=== PATIENT | female | born 1985 | race Caucasian/White ===

== ENCOUNTER → 2017-02-28 | Outpatient (CLI) | payer OTHER ==
--- NOTE | 2017-02-28 15:12 | KCIC ---
Examination: Obstetric ultrasound greater than 14 weeks HISTORY: History of uterine size discrepancy COMPARISON: None available FINDINGS: Single living intrauterine identified with heart rate of 160 bpm. movement is seen. Cardiac activity seen. 4 chamber heart seen. 3 vessel cord, cord insertion, fluid in the bladder, stomach, kidneys, spine, brain: seen. position is cephalic. Amniotic fluid measures 7.7 cm which is low normal. The biparietal diameter measures 3.37 cm corresponding to 16 weeks and 3 days +/- 8 days. Head circumference measures 12.34 cm corresponding to 16 weeks and 1 day +/- 8 days. Abdominal circumference measures 9.91 cm corresponding to 16 weeks and 0 days +/- 12 days. Femur length 2.05 cm corresponding to 16 weeks and 1 day +/- 10 days. Cephalic index 76.1. Head circumference to abdominal circumference ratio 1.25. Femur length biparietal diameter 60.8. Femur length to head circumference 16.6. Femur length abdominal circumference 20.7. LMP 11/08/2016. Clinical age 16 weeks and 0 days with expected date of delivery 08/15/2017. Ultrasound age 16 weeks and 1 day with expected date of delivery by ultrasound 08/14/2017. Estimated weight 144 g +/- 21 g. The maternal cervix is not well seen. Placenta is posterior. There is questionable anterior uterine contraction seen IMPRESSION: 1. Single living intrauterine with heart rate of 160 bpm. 2. Amniotic fluid index is 7.7 which is low-normal. Close interval follow-up examination can be considered. 3. Clinical age 16 weeks and 0 days with expected date of delivery 08/15/2017.Ultrasound age 16 weeks and 1 day with expected date of delivery by ultrasound 08/14/2017. Electronically signed by: Maurilio Live MD (02/28/2017 3:08 PM)
== END | disposition home or self-care (01) ==
LOC: KCIC US 13:00
PROVIDERS: ATTEND Obstetrics & Gynecology
DX: O26.842 Uterine size-date discrepancy, second trimester (principal); Z3A.16 16 weeks gestation of pregnancy
CPT/HCPCS: 76805; 76817

== ENCOUNTER → 2017-03-27 | Outpatient (CLI) | payer OTHER ==
--- NOTE | 2017-03-27 13:12 | RAD ---
Indication. Discrepancy in size and dates. Note is made of a previous examination 02/28/2017. There is a single, viable, IUP. heart rate 152 was documented. The placenta is predominantly posterior and low-lying but does not appear to cover the cervix. The amount of amniotic fluid appears normal. The biparietal diameter of 4.5 cm, head circumference of 17.1 cm, abdominal circumference of 14.5 cm and femoral length of 3.2 cm are compatible with a gestational age of approximately 19 weeks 5 days. By sonographic analysis the expected date of confinement is 10/17/2016 which is in general agreement with previous exam. The estimated weight is approximately 300 g. There was a 4 chambered heart. The visualized bladder, stomach, kidneys spine and brain appeared unremarkable. The upper cervix appeared open and dilated. The cervical length measured approximately 2.8 cm. The findings, regarding the cervix, were communicated to the ordering physician's office. The patient was to return to the office. IMPRESSION: Single viable intrauterine fetus of approximately 19 weeks 5 days gestation. Low lying placenta. The upper cervix appears open and somewhat dilated. Cervical length measured approximately 2.8 cm..
== END | disposition home or self-care (01) ==
LOC: US 11:55
PROVIDERS: ATTEND Obstetrics & Gynecology
DX: O09.92 Supervision of high risk pregnancy, unspecified, second trimester (principal); O26.842 Uterine size-date discrepancy, second trimester; Z3A.19 19 weeks gestation of pregnancy
CPT/HCPCS: 76805

== ENCOUNTER → 2017-04-11 | Outpatient (CLI) | payer OTHER ==
--- NOTE | 2017-04-11 09:45 | RAD ---
Obstetrical ultrasound, 04/11/2017: History: Size and date discrepancy, oligohydramnios There is a single intrauterine fetus in a variable presentation. The biparietal diameter measures 5.1 cm compatible with a gestational age of 21-22 weeks. The femur length measurement is 4.6 cm suggesting a gestational age of closer to 25 weeks. This discrepancy may be constitutional as the father is reportedly quite tall. The average gestational age based on all the measurements is 22 weeks and 5 days yielding a sonographic EDC of 08/10/2017. This correlates well with the EDC of 08/14/2017 established on the original ultrasound exam of 02/28/2017. Normal activity and heart motion are seen. The heart rate is 165 bpm. A normal amount of amniotic fluid is present. The placenta is located posteriorly with no evidence of a placenta previa. The cervical length is 5-6 cm. No extension of fluid into the cervical canal is currently seen. IMPRESSION: Single viable intrauterine fetus of 22-23 weeks gestational age which has demonstrated normal interval growth since prior studies.
== END | disposition home or self-care (01) ==
LOC: US 07:37
PROVIDERS: ATTEND Obstetrics & Gynecology
DX: O26.842 Uterine size-date discrepancy, second trimester (principal); O41.02X0 Oligohydramnios, second trimester, not applicable or unspecified; Z3A.23 23 weeks gestation of pregnancy
CPT/HCPCS: 76805

== ENCOUNTER 2017-05-14 12:24 | Observation (INO) | payer OTHER ==
[2017-05-14 13:20] LABS: BILIRUBIN,URINE NEGATIVE (NEG); GLUCOSE,URINE NEGATIVE (NEG); NITRITE,URINE NEGATIVE (NEG); PROTEIN,URINE NEGATIVE (NEG-TRACE); UROBILINOGEN,URINE 0.2 mg/dL (0.2 mg/dL)
[2017-05-14 13:54] LABS: BACTERIA,URINE MODERATE /HPF (0-FEW); RBC,URINE 0 /HPF (0-2); SQUAMOUS EPITHELIAL CELL,UR MOD /LPF
[2017-05-14] MEDS ORDERED: IV RINGERS,LACTATED 500ML 500 ML IV ONE (14:15)
--- NOTE | 2017-05-14 15:39 | RAD ---
Indication assess cervical length and placental placement. A limited obstetrical ultrasound examination was performed. Note is made of a previous exam 04/11/2017. There is a single viable intrauterine fetus. heart rate of 147 was documented. The biparietal diameter of 6.7 cm, head circumference of 25 cm and femoral length of 5.2 cm and abdominal circumference of 22.3 cm are compatible with a gestational age of approximately 27 weeks. Estimated weight is approximately 1025 g. The amount of amniotic fluid appears normal calculated index is 13.5. The placenta was positioned predominantly posterior and fundal. The cervical length was unremarkable at 4.4 cm. IMPRESSION: Single viable intrauterine fetus of approximately 27 weeks. Cervical length 4.4 cm. Normal amniotic fluid index. Placenta positioned predominantly posterior and fundal
== END 2017-05-14 16:30 | disposition home or self-care (01) ==
LOC: 3 SO LND 12:24
PROVIDERS: ADMIT Obstetrics & Gynecology; ATTEND Obstetrics & Gynecology
DX: O62.9 Abnormality of forces of labor, unspecified (principal); Z3A.27 27 weeks gestation of pregnancy
CPT/HCPCS: 76815; 81001; G0378; G0379

== ENCOUNTER 2017-08-12 06:05 | Inpatient (IN) | payer OTHER ==
[~2017-08-12] VITALS: Ht 162.6 cm; Wt 94.8 kg
[2017-08-12] VITALS (7 sets, daily range): BP systolic 98–122; BP diastolic 58–82
[2017-08-12] MEDS ORDERED: NALOXONE 0.4 MG/ML VIAL. IV PRN (06:30)
[2017-08-12] MEDS ORDERED: ONDANSETRON PF 4 MG/2 ML VIAL. IV PRN ×2 (06:30→09:00)
[2017-08-12] MEDS ORDERED: OXYTOCIN 30 UNIT/500 ML PREMIX 500 ML IV PRN ×2 (06:30→09:00)
[2017-08-12] MEDS ORDERED: IV RINGERS,LACTATED 1000ML 1,000 ML IV SCH ×3 (06:30)
[2017-08-12] MEDS ORDERED: ATROPINE 0.5 MG/5 ML DISP.SYRIN. IV PRN (06:30)
[2017-08-12] MEDS ORDERED: 0.9 % SODIUM CHLORIDE 10 ML DISP.SYRIN. IV PRN ×2 (06:30→09:00)
[2017-08-12 07:05] LABS: BILIRUBIN,URINE NEGATIVE (NEG); GLUCOSE,URINE NEGATIVE (NEG); NITRITE,URINE NEGATIVE (NEG); PH,URINE 7.5; PROTEIN,URINE NEGATIVE (NEG-TRACE)
[2017-08-12 07:26] LABS: BACTERIA,URINE FEW /HPF (0-FEW); SQUAMOUS EPITHELIAL CELL,UR MANY /LPF
[2017-08-12] MEDS ORDERED: MORPHINE PF 5 MG/10 ML VIAL. ONE (07:28)
[2017-08-12] MEDS ORDERED: fentaNYL PF VIAL 100 MCG/2 ML VIAL ONE (07:29)
[2017-08-12] MEDS ORDERED: FAMOTIDINE 20 MG/2 ML VIAL ONE (07:34)
[2017-08-12] MEDS ORDERED: ONDANSETRON PF 4 MG/2 ML VIAL. ONE (07:34)
[2017-08-12] MEDS ORDERED: METOCLOPRAMIDE HCL 10 MG/2 ML VIAL. ONE (07:34)
[2017-08-12 07:43] LABS: BASO % 0 % (0-3); EOS % 1 % (0-3); HEMATOCRIT 40.3 % (36.0-47.0); HEMOGLOBIN 13.6 g/dL (12.0-15.5); LYMPH % 15 % (24-48); MEAN CORPUSCULAR HEMOGLOBIN 29 pg (25-35); MEAN CORPUSCULAR HGB CONC 34 g/dL (31-37); MEAN CORPUSCULAR VOLUME 87 fL (79-100); MONO % 6 % (0-9); NEUT % 79 % (31-73); PLATELET COUNT 219 x10^3/uL (140-400); RED BLOOD COUNT 4.65 x10^6/uL (3.50-5.40); RED CELL DISTRIBUTION WIDTH 14.5 % (11.5-14.5); WHITE BLOOD COUNT 13.6 x10^3/uL (4.0-11.0)
--- NOTE | 2017-08-12 07:48 | PDOC1 ---
OB - History Hx of Present Care: Good Care Ultrasounds: Normal mid trimester US Obstetrical Complications: None Medical Complications: None Past Family/Social History * Past Medical, Surgical, Family and Obstetric Histories reviewed from chart. Rubella: Immune RPR/VDRL: Negative GBS Status: Negative HBsAG: Negative OB - Chief Complaint & HPI Date of Admission: Date of Admission: Aug 12, 2017 at 06:05 Chief Complaint/History : 2 Para: 1 EGA: 39 Reason for admission: section Indication for : desires repeat Admission Nurse Assessment Rev: Yes Problems: OB - Admission Exam Physical Exam HEENT: Normal Heart: Regular Rate Lungs: Clear Abdomen: Gravid, Non tender, Soft Extremities: Edema Reflexes: Normal Cervical Dilatation: None Effacement: 0% Station: Ballotable Membranes: Intact Heart Rate: Normal Accelerations: Accelerations Present Decelerations: No decelerations Contractions on Admission: >10 Minutes Apart Intensity: Mild Text A: 39 wks IUP Previous c/s P: Admit for repeat c/s. SAUL LA Jr, MD Aug 12, 2017 07:48
[2017-08-12] MEDS ORDERED: PNV1TABL25 PO (07:49)
[2017-08-12] MEDS ORDERED: RANI150T6 PO (07:50)
[2017-08-12] MEDS: CITRIC ACID/SODIUM CITRATE 30 ML SOLUTION. PO PRN ×2 (07:51→07:52)
[2017-08-12] MEDS: IV RINGERS,LACTATED 1000ML 1,000 ML IV PRN ×2 (07:52→22:10)
[2017-08-12] MEDS ORDERED: PHENYLEPHRINE in 0.9% NACL PF 1 MG/10 ML DISP.SYRIN. IV ONE (07:54)
[2017-08-12] MEDS ORDERED: OXYTOCIN 10 UNIT/ML VIAL. ONE ×3 (07:57→08:44)
--- NOTE | 2017-08-12 08:57 | PDOC4 ---
OB Operative Note Date: Aug 12, 2017 PRE OP DIAGNOSIS: Previoujs C- section POST OP DIAGNOSIS: Previous C- section OPERATION PERFORMED: R [facility] Surgeon Dr. Robert Villarreal Anesthesia: Regional (Spinal) Blood Loss 600 ml Specimen infant and placenta OB Findings: Position (Vertex), Sex (Female), (8/9), Weight (3610 Gram) Complications none Additional Remarks pt. stable SAUL LA Jr, MD Aug 12, 2017 08:57
[2017-08-12] MEDS ORDERED: MAG HYDROX/ALUMINUM HYD/SIMETH 30 ML ORAL.SUSP PO PRN (09:00)
[2017-08-12] MEDS ORDERED: diphenhydrAMINE ORAL ELIXIR 12.5 MG/5 ML ML PO PRN (09:00)
[2017-08-12] MEDS ORDERED: SIMETHICONE 80 MG TAB.CHEW PO PRN (09:00)
[2017-08-12] MEDS ORDERED: ZOLPIDEM 5 MG TABLET. PO PRN (09:00)
--- NOTE | 2017-08-12 09:45 | OP ---
DATE OF SURGERY: PREOPERATIVE DIAGNOSES: 1. A 39 weeks intrauterine . 2. Previous . POSTOPERATIVE DIAGNOSES: 1. A 39 weeks intrauterine . 2. Previous . PROCEDURE: Repeat low transverse section. SURGEON: Saul Jones M.D. MENTALLY RETARDED TEACHER: Cherelle. ANESTHESIA: Spinal. ESTIMATED BLOOD LOSS: 600 mL. COMPLICATIONS: None. FINDINGS: Viable female , Apgars 8 and 9, weight 3610 grams. Three-vessel cord placenta delivered manually intact. SUMMARY: A 32-year-old 2, para 1 at 39 weeks presented for repeat . She was counseled on the risks, benefits and expectations and voiced a clear understanding to proceed. DESCRIPTION OF PROCEDURE: The patient was taken to surgery suite and placed in dorsal supine position. She was prepped with ChloraPrep and draped in a sterile fashion. After adequate anesthesia, a Pfannenstiel skin incision was made with a scalpel down to and through the fascia. Fascia was extended laterally using curved Stanton scissors. The superior edge of the fascia was grasped with two Cathie clamps and dissected free of the abdominal rectus muscle using blunt dissection along with Bovie cautery. The same process took place inferiorly. The abdominal rectus muscles were then dissected bluntly at the midline. Peritoneum was grasped with 2 hemostats and entered sharply with Metzenbaum scissors. This incision was extended superiorly as well as inferiorly. There were adhesions to the lower uterine segment as well as upper uterine segment that were bluntly dissected along with sharp dissection with Metzenbaum scissors. The Daniel ring retractor was placed. A low transverse hysterotomy incision was made with scalpel down to the amniotic sac. Hysterotomy incision was extended laterally and superiorly digitally. Amniotomy was performed with Allis clamp, which elicited a moderate amount of clear amniotic fluid. With the aid of fundal pressure, the 's head was delivered in a smooth atraumatic manner. With additional fundal pressure, the anterior shoulder was delivered followed by posterior shoulder and rest of the female was delivered. Infant was suctioned with bulb syringe orally and nasally, umbilical cord was clamped twice and cut. The viable female infant was handed to awaiting nursing staff. Umbilical cord blood was then obtained. Three-vessel cord placenta was delivered manually intact. The uterus was exteriorized, cleared of clot and debris with a moist lap. Hysterotomy incision was reapproximated using a 1-0 Vicryl suture in running locked fashion. In the right apex of the hysterotomy incision, a [id number] suture was placed for better hemostasis. The uterus palpated firm. Fallopian tubes and ovaries appeared normal bilaterally. The pericolic gutters were cleared of clot and debris with a moist lap. Interceed was placed over the hysterotomy incision in an inverted T fashion. The Daniel ring retractor was removed. The peritoneum was reapproximated using 1-0 Vicryl suture in running fashion. Fascia was reapproximated using 0 Vicryl suture in a running fashion. Skin was reapproximated using 4-0 Vicryl suture in a subcuticular manner. The patient tolerated the procedure well and was taken to the recovery room in stable condition. Sponge and needle count correct x 3. SAUL JONES MD DR: DILEEP/amari JOB#: [id number] / [id number]
[2017-08-12] MEDS: KETOROLAC 30 MG/ML INJ. IV PRN ×2 (13:11→18:43)
[2017-08-12] MEDS: oxyCODONE/APAP 5/325 1 TAB TABLET PO PRN ×2 (13:12→18:43)
[2017-08-12] MEDS: FERROUS SULFATE 325 MG TABLET. PO SCH (13:28)
[2017-08-12] MEDS: DOCUSATE SODIUM 100 MG CAPSULE. PO PRN (22:07)
[2017-08-12] MEDS: IBUPROFEN 800 MG TABLET. PO PRN (22:07)
[2017-08-13] MEDS: oxyCODONE/APAP 5/325 1 TAB TABLET PO PRN (02:15)
[2017-08-13 05:35] LABS: BASO % 0 % (0-3); EOS % 1 % (0-3); HEMATOCRIT 34.8 % (36.0-47.0); HEMOGLOBIN 11.5 g/dL (12.0-15.5); LYMPH # 1.8 x10^3/uL (1.0-4.8); LYMPH % 15 % (24-48); MEAN CORPUSCULAR HEMOGLOBIN 29 pg (25-35); MEAN CORPUSCULAR HGB CONC 33 g/dL (31-37); MEAN CORPUSCULAR VOLUME 88 fL (79-100); MONO % 6 % (0-9); NEUT % 79 % (31-73); PLATELET COUNT 164 x10^3/uL (140-400); RED BLOOD COUNT 3.96 x10^6/uL (3.50-5.40); RED CELL DISTRIBUTION WIDTH 14.3 % (11.5-14.5); WHITE BLOOD COUNT 12.5 x10^3/uL (4.0-11.0)
[2017-08-13 06:14] VITALS: BP 107/72
[2017-08-13] MEDS: FERROUS SULFATE 325 MG TABLET. PO SCH (08:00)
--- NOTE | 2017-08-13 08:11 | PDOC ---
OB Progress Note Date of Service 08/13/17 Time of Evaluation 0810 Notes Pt. feeling well. Pain controlled. Breast feeding. Lochia minimal. No complaints. Lab Laboratory Tests Test 08/12/17 06:30 08/12/17 06:50 08/13/17 05:00 Urine Collection Type Unknown Urine Color Yellow Urine Clarity Clear Urine pH 7.5 Urine Specific [place] 1.015 Urine Protein Negative mg/dL (NEG-TRACE) Urine Glucose (UA) Negative mg/dL (NEG) Urine Ketones (Stick) Negative mg/dL (NEG) Urine Blood Small (NEG) Urine Nitrite Negative (NEG) Urine Bilirubin Negative (NEG) Urine Urobilinogen Dipstick 1.0 mg/dL (0.2 mg/dL) Urine Leukocyte Esterase Large (NEG) Urine RBC 3-5 /HPF (0-2) Urine WBC 11-20 /HPF (0-4) Urine Squamous Epithelial Cells Many /LPF Urine Bacteria Few /HPF (0-FEW) White Blood Count 13.6 x10^3/uL (4.0-11.0) 12.5 x10^3/uL (4.0-11.0) Red Blood Count 4.65 x10^6/uL (3.50-5.40) 3.96 x10^6/uL (3.50-5.40) Hemoglobin 13.6 g/dL (12.0-15.5) 11.5 g/dL (12.0-15.5) Hematocrit 40.3 % (36.0-47.0) 34.8 % (36.0-47.0) Mean Corpuscular Volume 87 fL (79-100) 88 fL (79-100) Mean Corpuscular Hemoglobin 29 pg (25-35) 29 pg (25-35) Mean Corpuscular Hemoglobin Concent 34 g/dL (31-37) 33 g/dL (31-37) Red Cell Distribution Width 14.5 % (11.5-14.5) 14.3 % (11.5-14.5) Platelet Count 219 x10^3/uL (140-400) 164 x10^3/uL (140-400) Neutrophils (%) (Auto) 79 % (31-73) 79 % (31-73) Lymphocytes (%) (Auto) 15 % (24-48) 15 % (24-48) Monocytes (%) (Auto) 6 % (0-9) 6 % (0-9) Eosinophils (%) (Auto) 1 % (0-3) 1 % (0-3) Basophils (%) (Auto) 0 % (0-3) 0 % (0-3) Neutrophils # (Auto) 10.7 x10^3uL (1.8-7.7) 9.8 x10^3uL (1.8-7.7) Lymphocytes # (Auto) 2.0 x10^3/uL (1.0-4.8) 1.8 x10^3/uL (1.0-4.8) Monocytes # (Auto) 0.8 x10^3/uL (0.0-1.1) 0.7 x10^3/uL (0.0-1.1) Eosinophils # (Auto) 0.1 x10^3/uL (0.0-0.7) 0.1 x10^3/uL (0.0-0.7) Basophils # (Auto) 0.0 x10^3/uL (0.0-0.2) 0.0 x10^3/uL (0.0-0.2) Rapid Plasma Reagin Non reactive (Non Reactive) Laboratory Tests Test 08/13/17 05:00 White Blood Count 12.5 x10^3/uL (4.0-11.0) Red Blood Count 3.96 x10^6/uL (3.50-5.40) Hemoglobin 11.5 g/dL (12.0-15.5) Hematocrit 34.8 % (36.0-47.0) Mean Corpuscular Volume 88 fL (79-100) Mean Corpuscular Hemoglobin 29 pg (25-35) Mean Corpuscular Hemoglobin Concent 33 g/dL (31-37) Red Cell Distribution Width 14.3 % (11.5-14.5) Platelet Count 164 x10^3/uL (140-400) Neutrophils (%) (Auto) 79 % (31-73) Lymphocytes (%) (Auto) 15 % (24-48) Monocytes (%) (Auto) 6 % (0-9) Eosinophils (%) (Auto) 1 % (0-3) Basophils (%) (Auto) 0 % (0-3) Neutrophils # (Auto) 9.8 x10^3uL (1.8-7.7) Lymphocytes # (Auto) 1.8 x10^3/uL (1.0-4.8) Monocytes # (Auto) 0.7 x10^3/uL (0.0-1.1) Eosinophils # (Auto) 0.1 x10^3/uL (0.0-0.7) Basophils # (Auto) 0.0 x10^3/uL (0.0-0.2) Medications Current Medications Atropine Sulfate 0.5 mg PRN 1X PRN IV SEE COMMENTS; Start 08/12/17 at 06:30; Stop 08/12/17 at 13:30; Status DC Naloxone HCl (Narcan) 0.04 mg PRN Q2MIN PRN IV SEE COMMENTS; Start 08/12/17 at 06:30; Stop 08/12/17 at 13:34; Status DC Ringer's Solution 1,000 ml @ 125 mls/hr Q8H IV Last administered on 08/12/17 07:41; Start 08/12/17 at 06:30; Stop 08/12/17 at 06:31; Status DC Ringer's Solution 1,000 ml @ 1,000 mls/hr Q1H IV Last administered on 07:51; Start 08/12/17 at 06:30; Stop 08/12/17 at 07:29; Status DC Ringer's Solution 1,000 ml @ 125 mls/hr Q8H IV ; Start 08/12/17 at 06:30; Stop 08/12/17 at 07:13; Status DC Cefazolin Sodium/ Dextrose 50 ml @ 100 mls/hr 1X ONCE IV Last administered on 08/12/17 07:54; Start 08/12/17 at 06:45; Stop 08/12/17 at 13:34; Status DC Sodium Chloride (Normal Saline Flush) 3 ml QSHIFT PRN IV AFTER MEDS AND BLOOD DRAWS; Start 08/12/17 at 06:30; Stop 08/12/17 at 13:30; Status DC Ondansetron HCl (Zofran) 4 mg PRN Q4HRS PRN IV NAUSEA/VOMITING; Start 08/12/17 at 06:30; Stop 08/12/17 at 13:30; Status DC Citric Acid/ Sodium Citrate (Bicitra) 30 ml 1X PRN PRN PO DYSPEPSIA Last administered on 08/12/17 07:52; Start 08/12/17 at 06:30; Stop 08/12/17 at 13:30 ; Status DC Oxytocin/Sodium Chloride 500 ml @ 0 mls/hr CONT PRN PRN IV Post delivery bleeding; Start 08/12/17 at 06:30; Stop 08/12/17 at 13:30; Status DC Ringer's Solution 1,000 ml @ 125 mls/hr Q8H PRN IV PER PROTOCOL Last administered on 08/12/17 22:10; Start 08/12/17 at 07:12 Morphine Sulfate (Morphine Preservative Free) 5 mg STK-MED ONCE .ROUTE ; Start 08/12/17 at 07:28; Stop 08/12/17 at 13:34; Status DC Fentanyl Citrate (Fentanyl 2ml Vial) 100 mcg STK-MED ONCE .ROUTE ; Start at 07:29; Stop 08/12/17 at 13:34; Status DC Ondansetron HCl (Zofran) 4 mg STK-MED ONCE .ROUTE ; Start 08/12/17 at 07:34; Stop 08/12/17 at 13:31; Status DC Metoclopramide HCl (Reglan Vial) 10 mg STK-MED ONCE .ROUTE ; Start 08/12/17 at 07:34; Stop 08/12/17 at 13:34; Status DC Famotidine (Pepcid Vial) 20 mg STK-MED ONCE .ROUTE ; Start 08/12/17 at 07:34; Stop 08/12/17 at 13:34; Status DC Phenylephrine HCl 1 mg STK-MED ONCE IV ; Start 08/12/17 at 07:54; Stop 08/12/17 at 13:34; Status DC Ephedrine Sulfate (Akovaz) 50 mg STK-MED ONCE .ROUTE ; Start 08/12/17 at 07:54; Stop 08/12/17 at 13:34; Status DC Oxytocin (Pitocin) 10 unit STK-MED ONCE .ROUTE ; Start 08/12/17 at 07:57; Stop 08/12/17 at 13:34; Status DC Diphtheria/ Tetanus/Acell Pertussis (Boostrix) 0.5 ml ONCE ONCE VAX IM Last administered on 08/12/17 13:00; Start 08/13/17 at 12:00; Stop 08/13/17 at 12:00 ; Status DC Oxytocin (Pitocin) 10 unit STK-MED ONCE .ROUTE ; Start 08/12/17 at 08:44; Stop 08/12/17 at 13:34; Status DC Oxytocin (Pitocin) 10 unit STK-MED ONCE .ROUTE ; Start 08/12/17 at 08:44; Stop 08/12/17 at 13:34; Status DC Sodium Chloride (Normal Saline Flush) 3 ml QSHIFT PRN IV AFTER MEDS AND BLOOD DRAWS; Start 08/12/17 at 09:00; Stop 08/12/17 at 13:32; Status DC Oxytocin/Sodium Chloride 500 ml @ 125 mls/hr CONT PRN IV EXCESSIVE POST- BLEEDING; Start 08/12/17 at 09:00; Stop 08/12/17 at 13:31; Status DC Ibuprofen (Motrin) 800 mg PRN Q8HRS PRN PO INFLAMMATION Last administered on 22:07; Start 08/12/17 at 09:00 Ondansetron HCl (Zofran) 4 mg PRN Q6HRS PRN IV NAUSEA/VOMITING; Start 08/12/17 at 09:00 Docusate Sodium (Colace) 100 mg PRN BID PRN PO CONSTIPATION Last administered on 08/12/17 22:07; Start 08/12/17 at 09:00 Al Hydroxide/Mg Hydroxide (Mylanta Plus Xs) 30 ml PRN Q4HRS PRN PO HEARTBURN / GAS; Start 08/12/17 at 09:00 Simethicone (Gas-X) 80 mg PRN AFTMEALHC PRN PO GAS / BLOATING; Start 08/12/17 at 09:00 Diphenhydramine HCl (Benadryl Oral Elixir) 12.5 mg PRN Q6HRS PRN PO ITCHING; Start 08/12/17 at 09:00 Ferrous Sulfate (Feosol) 325 mg BIDWMEALS PO ; Start 08/12/17 at 17:00 Zolpidem Tartrate (Ambien) 5 mg PRN QHS PRN PO INSOMNIA, MAY REPEAT X1; Start 08/12/17 at 09:00 Oxycodone/ Acetaminophen (Percocet 5/325) 2 tab PRN Q4HRS PRN PO MODERATE PAIN , SEVERE PAIN Last administered on 08/13/17 02:15; Start 08/12/17 at 09:00 Ketorolac Tromethamine (Toradol) 30 mg PRN Q6HRS PRN IV PAIN Last administered on 08/12/17 18:43; Start 08/12/17 at 09:00; Stop 08/17/17 at 08:59 Active Scripts Active Reported Zantac (Ranitidine Hcl) 150 Mg Tablet 1 Tab PO BID PRN Tablet (Pnv Cmb#95/Ferrous Fumarate/Fa) 1 Each Tablet 1 Tab PO DAILY Exam Abd: soft, non tender, fundus firm Bandage in place and dry. Assessment POD#1 s/p repeat c/s Plan of Care: Continue current Tx, Mgmt SAUL LA Jr, MD Aug 13, 2017 08:11
[2017-08-13 10:30] VITALS: BP 112/78
[2017-08-13] MEDS: IBUPROFEN 800 MG TABLET. PO PRN ×2 (10:36→16:23)
[2017-08-13] MEDS: DOCUSATE SODIUM 100 MG CAPSULE. PO PRN ×2 (10:36→18:02)
[2017-08-13] MEDS ORDERED: DIPHTH,PERTUSS(ACELL),TET TOX 0.5 ML DISP.SYRIN. VAX IM ONE (12:00)
[2017-08-13] MEDS ORDERED: MAGNESIUM HYDROXIDE 2,400 MG/30 ML ORAL.SUSP. PO PRN (18:00)
[2017-08-13 20:30] VITALS: BP 131/71
[2017-08-14] MEDS: oxyCODONE/APAP 5/325 1 TAB TABLET PO PRN (00:27)
[2017-08-14] MEDS: IBUPROFEN 800 MG TABLET. PO PRN ×2 (00:27→08:21)
[2017-08-14 06:00] VITALS: BP 114/82
[2017-08-14 08:15] VITALS: BP 126/76
[2017-08-14] MEDS: DOCUSATE SODIUM 100 MG CAPSULE. PO PRN (08:21)
--- NOTE | 2017-08-14 08:33 | PDOC ---
OB Progress Note Date of Service 08/14/17 Time of Evaluation 0830 Notes Pt. feeling well. No complaints. Lab Laboratory Tests Test 08/13/17 05:00 White Blood Count 12.5 x10^3/uL (4.0-11.0) Red Blood Count 3.96 x10^6/uL (3.50-5.40) Hemoglobin 11.5 g/dL (12.0-15.5) Hematocrit 34.8 % (36.0-47.0) Mean Corpuscular Volume 88 fL (79-100) Mean Corpuscular Hemoglobin 29 pg (25-35) Mean Corpuscular Hemoglobin Concent 33 g/dL (31-37) Red Cell Distribution Width 14.3 % (11.5-14.5) Platelet Count 164 x10^3/uL (140-400) Neutrophils (%) (Auto) 79 % (31-73) Lymphocytes (%) (Auto) 15 % (24-48) Monocytes (%) (Auto) 6 % (0-9) Eosinophils (%) (Auto) 1 % (0-3) Basophils (%) (Auto) 0 % (0-3) Neutrophils # (Auto) 9.8 x10^3uL (1.8-7.7) Lymphocytes # (Auto) 1.8 x10^3/uL (1.0-4.8) Monocytes # (Auto) 0.7 x10^3/uL (0.0-1.1) Eosinophils # (Auto) 0.1 x10^3/uL (0.0-0.7) Basophils # (Auto) 0.0 x10^3/uL (0.0-0.2) Medications Current Medications Atropine Sulfate 0.5 mg PRN 1X PRN IV SEE COMMENTS; Start 08/12/17 at 06:30; Stop 08/12/17 at 13:30; Status DC Naloxone HCl (Narcan) 0.04 mg PRN Q2MIN PRN IV SEE COMMENTS; Start 08/12/17 at 06:30; Stop 08/12/17 at 13:34; Status DC Ringer's Solution 1,000 ml @ 125 mls/hr Q8H IV Last administered on 08/12/17t 07:41; Start 08/12/17 at 06:30; Stop 08/12/17 at 06:31; Status DC Ringer's Solution 1,000 ml @ 1,000 mls/hr Q1H IV Last administered on 07:51; Start 08/12/17 at 06:30; Stop 08/12/17 at 07:29; Status DC Ringer's Solution 1,000 ml @ 125 mls/hr Q8H IV ; Start 08/12/17 at 06:30; Stop 08/12/17 at 07:13; Status DC Cefazolin Sodium/ Dextrose 50 ml @ 100 mls/hr 1X ONCE IV Last administered on 08/12/17 07:54; Start 08/12/17 at 06:45; Stop 08/12/17 at 13:34; Status DC Sodium Chloride (Normal Saline Flush) 3 ml QSHIFT PRN IV AFTER MEDS AND BLOOD DRAWS; Start 08/12/17 at 06:30; Stop 08/12/17 at 13:30; Status DC Ondansetron HCl (Zofran) 4 mg PRN Q4HRS PRN IV NAUSEA/VOMITING; Start 08/12/17 at 06:30; Stop 08/12/17 at 13:30; Status DC Citric Acid/ Sodium Citrate (Bicitra) 30 ml 1X PRN PRN PO DYSPEPSIA Last administered on 08/12/17 07:52; Start 08/12/17 at 06:30; Stop 08/12/17 at 13:30 ; Status DC Oxytocin/Sodium Chloride 500 ml @ 0 mls/hr CONT PRN PRN IV Post delivery bleeding; Start 08/12/17 at 06:30; Stop 08/12/17 at 13:30; Status DC Ringer's Solution 1,000 ml @ 125 mls/hr Q8H PRN IV PER PROTOCOL Last administered on 08/12/17 22:10; Start 08/12/17 at 07:12; Stop 08/14/17 at 07:26 ; Status DC Morphine Sulfate (Morphine Preservative Free) 5 mg STK-MED ONCE .ROUTE ; Start 08/12/17 at 07:28; Stop 08/12/17 at 13:34; Status DC Fentanyl Citrate (Fentanyl 2ml Vial) 100 mcg STK-MED ONCE .ROUTE ; Start at 07:29; Stop 08/12/17 at 13:34; Status DC Ondansetron HCl (Zofran) 4 mg STK-MED ONCE .ROUTE ; Start 08/12/17 at 07:34; Stop 08/12/17 at 13:31; Status DC Metoclopramide HCl (Reglan Vial) 10 mg STK-MED ONCE .ROUTE ; Start 08/12/17 at 07:34; Stop 08/12/17 at 13:34; Status DC Famotidine (Pepcid Vial) 20 mg STK-MED ONCE .ROUTE ; Start 08/12/17 at 07:34; Stop 08/12/17 at 13:34; Status DC Phenylephrine HCl 1 mg STK-MED ONCE IV ; Start 08/12/17 at 07:54; Stop 08/12/17 at 13:34; Status DC Ephedrine Sulfate (Akovaz) 50 mg STK-MED ONCE .ROUTE ; Start 08/12/17 at 07:54; Stop 08/12/17 at 13:34; Status DC Oxytocin (Pitocin) 10 unit STK-MED ONCE .ROUTE ; Start 08/12/17 at 07:57; Stop 08/12/17 at 13:34; Status DC Diphtheria/ Tetanus/Acell Pertussis (Boostrix) 0.5 ml ONCE ONCE VAX IM Last administered on 08/12/17 13:00; Start 08/13/17 at 12:00; Stop 08/13/17 at 12:00 ; Status DC Oxytocin (Pitocin) 10 unit STK-MED ONCE .ROUTE ; Start 08/12/17 at 08:44; Stop 08/12/17 at 13:34; Status DC Oxytocin (Pitocin) 10 unit STK-MED ONCE .ROUTE ; Start 08/12/17 at 08:44; Stop 08/12/17 at 13:34; Status DC Sodium Chloride (Normal Saline Flush) 3 ml QSHIFT PRN IV AFTER MEDS AND BLOOD DRAWS; Start 08/12/17 at 09:00; Stop 08/12/17 at 13:32; Status DC Oxytocin/Sodium Chloride 500 ml @ 125 mls/hr CONT PRN IV EXCESSIVE POST- BLEEDING; Start 08/12/17 at 09:00; Stop 08/12/17 at 13:31; Status DC Ibuprofen (Motrin) 800 mg PRN Q8HRS PRN PO INFLAMMATION Last administered on 08:21; Start 08/12/17 at 09:00 Ondansetron HCl (Zofran) 4 mg PRN Q6HRS PRN IV NAUSEA/VOMITING; Start 08/12/17 at 09:00; Stop 08/13/17 at 10:40; Status DC Docusate Sodium (Colace) 100 mg PRN BID PRN PO CONSTIPATION Last administered on 08/14/17 08:21; Start 08/12/17 at 09:00 Al Hydroxide/Mg Hydroxide (Mylanta Plus Xs) 30 ml PRN Q4HRS PRN PO HEARTBURN / GAS; Start 08/12/17 at 09:00 Simethicone (Gas-X) 80 mg PRN AFTMEALHC PRN PO GAS / BLOATING; Start 08/12/17 at 09:00 Diphenhydramine HCl (Benadryl Oral Elixir) 12.5 mg PRN Q6HRS PRN PO ITCHING; Start 08/12/17 at 09:00 Ferrous Sulfate (Feosol) 325 mg BIDWMEALS PO ; Start 08/12/17 at 17:00; Stop at 10:40; Status DC Zolpidem Tartrate (Ambien) 5 mg PRN QHS PRN PO INSOMNIA, MAY REPEAT X1; Start 08/12/17 at 09:00 Oxycodone/ Acetaminophen (Percocet 5/325) 2 tab PRN Q4HRS PRN PO MODERATE PAIN , SEVERE PAIN Last administered on 08/14/17 00:27; Start 08/12/17 at 09:00 Ketorolac Tromethamine (Toradol) 30 mg PRN Q6HRS PRN IV PAIN Last administered on 08/12/17 18:43; Start 08/12/17 at 09:00; Stop 08/13/17 at 10:40; Status DC Magnesium Hydroxide (Milk Of Magnesia) 2,400 mg PRN DAILY PRN PO CONSTIPATION Last administered on 08/13/17 18:02; Start 08/13/17 at 18:00 Active Scripts Active Reported Zantac (Ranitidine Hcl) 150 Mg Tablet 1 Tab PO BID PRN Tablet (Pnv Cmb#95/Ferrous Fumarate/Fa) 1 Each Tablet 1 Tab PO DAILY Exam Abd: soft, non tender, fundus firm Incision site: clean, dry and intact Assessment POD#2 s/p repeat c/s Plan of Care: See new orders (D/c home.) SAUL LA Jr, MD Aug 14, 2017 08:33
--- NOTE | 2017-08-14 08:34 | DISCH ---
DISCHARGE INSTRUCTIONS Condition on Discharge Condition on Discharge: Stable Activity After Discharge Activity Instructions for Disc: Activity as tolerated Lifting Instructions after Dis: No heavy lifting Driving Instructions after Dis: No driving for 2 weeks Diet after Discharge Diet Texture: Regular Contacting the DRMax after DC Call your doctor for: Concerns you may have Follow-Up Follow up with: Dr. Jones in 2 weeks. SAUL JONES Jr, MD Aug 14, 2017 08:34
[2017-08-14] MEDS ORDERED: IBUP-1060 PO (08:36)
[2017-08-14] MEDS ORDERED: OXYC-323 PO (08:36)
[2017-08-14] MEDS ORDERED: DOCU-109 PO (08:36)
[2017-08-14 12:35] VITALS: BP 129/74
[2017-08-14 12:42] VITALS: BP 129/74
== END 2017-08-14 12:45 | disposition home or self-care (01) | DRG 766 ==
LOC: 3 SO LND 06:05 → 3 NORTH 11:02
PROVIDERS: ADMIT Obstetrics & Gynecology; ATTEND Obstetrics & Gynecology
PROC: 10D00Z1 Extraction of Products of Conception, Low, Open Approach (ICD-10-PCS; principal; 2017-08-12)
DX: O34.211 Maternal care for low transverse scar from previous cesarean delivery (principal); Z37.0 Single live birth; Z3A.39 39 weeks gestation of pregnancy
CPT/HCPCS: 36415; 81001; 85025; 86592; 86593; 86850; 86900; 86901; 87086; 90715; 92585; J0690; J1885; J2270; J2370; J2405; J2590; J2765; J3010; J7120; S0028

== ENCOUNTER 2020-02-07 09:44 | Emergency (ER) | payer MEDICAID, OTHER ==
[~2020-02-07] VITALS: Ht 162.6 cm; Wt 90.9 kg
[~2020-02-07 09:44] MED LIST: DOCU-109 PO; IBUP-1060 PO; OXYC1TAB15 PO; PNV1TABL25 PO; RANI-376 PO
[2020-02-07] MEDS ORDERED: IV NORMAL SALINE 1000ML BAG 1,000 ML IV ONE ×2 (10:15→11:45)
[2020-02-07 10:39] LABS: CALCIUM 8.6 mg/dL (8.5-10.1); GFR 63.9; POTASSIUM 3.6 mmol/L (3.5-5.1)
[2020-02-07 10:45] LABS: ALBUMIN 4.2 g/dL (3.4-5.0); ALBUMIN/GLOBULIN RATIO 1.3 (1.0-1.7); TOTAL BILIRUBIN 0.8 mg/dL (0.2-1.0); TOTAL PROTEIN 7.5 g/dL (6.4-8.2)
[2020-02-07 10:51] LABS: BASO % 0 % (0-3); EOS # 0.1 x10^3/uL (0.0-0.7); EOS % 1 % (0-3); HEMATOCRIT 45.6 % (36.0-47.0); HEMOGLOBIN 15.4 g/dL (12.0-15.5); LYMPH # 1.4 x10^3/uL (1.0-4.8); LYMPH % 13 % (24-48); MEAN CORPUSCULAR HEMOGLOBIN 30 pg (25-35); MEAN CORPUSCULAR HGB CONC 34 g/dL (31-37); MEAN CORPUSCULAR VOLUME 88 fL (79-100); MONO # 0.5 x10^3/uL (0.0-1.1); MONO % 5 % (0-9); NEUT # 9.3 x10^3/uL (1.8-7.7); NEUT % 82 % (31-73); PLATELET COUNT 220 x10^3/uL (140-400); RED BLOOD COUNT 5.21 x10^6/uL (3.50-5.40); RED CELL DISTRIBUTION WIDTH 13.4 % (11.5-14.5); WHITE BLOOD COUNT 11.4 x10^3/uL (4.0-11.0)
[2020-02-07 11:51] VITALS: BP 106/58
--- NOTE | 2020-02-07 12:46 | PHYS DOC ---
Past Medical History Past Medical History: Kidney Stone Past Surgical History: , Other Additional Past Surgical Histo: nephrolithotomy Smoking Status: Current Every Day Smoker Alcohol Use: None General Adult EDM: Chief Complaint: ANXIETY/PANIC ATTACK HPI: HPI: Patient is a 34 year old female presents to the ED with a chief complaint of palpitations and shortness of breath. Patient states that she was at work this morning when she suddenly had the symptoms. Patient states that she had a previous episode like this 3 days ago which lasted about an hour and then resolved. Patient states that she is never had symptoms like this before. Patient is not sure if this is a anxiety attack. Patient decided to drink caffeinated beverages this morning she came to work at 5 AM. Patient denies chest pain, fever, chills, nausea or vomiting. Review of Systems: Review of Systems: Constitutional: Denies fever or chills. [] Eyes: Denies change in visual acuity. [] HENT: Denies nasal congestion or sore throat. [] Respiratory: Complains of shortness of breath Cardiovascular: Complains of palpitations GI: Denies abdominal pain, nausea, vomiting : Denies dysuria. [] Musculoskeletal: Denies back pain or joint pain. [] Neurologic: Denies headache, focal weakness or sensory changes. [] Heart Score: Risk Factors: Risk Factors: DM, Current or recent (<one month) smoker, HTN, HLP, family history of CAD, obesity. Risk Scores: Score 0 - 3: 2.5% MACE over next 6 weeks - Discharge Home Score 4 - 6: 20.3% MACE over next 6 weeks - Admit for Clinical Observation Score 7 - 10: 72.7% MACE over next 6 weeks - Early Invasive Strategies Current Medications: Current Medications Medications (Trade) Dose Ordered Sig/Nena Start Time Stop Time Status Last Admin Dose Admin Sodium Chloride 1,000 ml @ 1,000 mls/hr 1X ONCE 02/07/20 11:45 02/07/20 12:44 DC 02/07/20 11:53 1,000 MLS/HR Allergies: Allergies: Allergies Coded Allergies Type Severity Reaction Last Updated Verified morphine Adverse Reaction Intermediate Vomiting 08/12/17 Yes Physical Exam: PE: Constitutional: Well developed, well nourished, no acute distress, non-toxic appearance. [] HENT: Normocephalic, atraumatic Eyes: EOMI Neck: Normal range of motion, Supple Cardiovascular: Tachycardia Lungs & Thorax: Bilateral breath sounds clear to auscultation [] Abdomen: Bowel sounds normal, soft, no tenderness Extremities: No tenderness, ROM intact Neurologic: Alert and oriented X 3 Current Patient Data: Labs: Laboratory Tests Test 02/07/20 10:20 White Blood Count 11.4 x10^3/uL (4.0-11.0) H Red Blood Count 5.21 x10^6/uL (3.50-5.40) Hemoglobin 15.4 g/dL (12.0-15.5) Hematocrit 45.6 % (36.0-47.0) Mean Corpuscular Volume 88 fL (79-100) Mean Corpuscular Hemoglobin 30 pg (25-35) Mean Corpuscular Hemoglobin Concent 34 g/dL (31-37) Red Cell Distribution Width 13.4 % (11.5-14.5) Platelet Count 220 x10^3/uL (140-400) Neutrophils (%) (Auto) 82 % (31-73) H Lymphocytes (%) (Auto) 13 % (24-48) L Monocytes (%) (Auto) 5 % (0-9) Eosinophils (%) (Auto) 1 % (0-3) Basophils (%) (Auto) 0 % (0-3) Neutrophils # (Auto) 9.3 x10^3/uL (1.8-7.7) H Lymphocytes # (Auto) 1.4 x10^3/uL (1.0-4.8) Monocytes # (Auto) 0.5 x10^3/uL (0.0-1.1) Eosinophils # (Auto) 0.1 x10^3/uL (0.0-0.7) Basophils # (Auto) 0.0 x10^3/uL (0.0-0.2) Sodium Level 141 mmol/L (136-145) Potassium Level 3.6 mmol/L (3.5-5.1) Chloride Level 105 mmol/L (98-107) Carbon Dioxide Level 27 mmol/L (21-32) Anion Gap 9 (6-14) Blood Urea Nitrogen 14 mg/dL (7-20) Creatinine 1.0 mg/dL (0.6-1.0) Estimated GFR (Cockcroft-Gault) 63.9 BUN/Creatinine Ratio 14 (6-20) Glucose Level 118 mg/dL (70-99) H Calcium Level 8.6 mg/dL (8.5-10.1) Magnesium Level 2.0 mg/dL (1.8-2.4) Total Bilirubin 0.8 mg/dL (0.2-1.0) Aspartate Amino Transferase (AST) 14 U/L (15-37) L Alanine Aminotransferase (ALT) 22 U/L (14-59) Alkaline Phosphatase 80 U/L (46-116) Troponin I Quantitative < 0.017 ng/mL (0.000-0.055) Total Protein 7.5 g/dL (6.4-8.2) Albumin 4.2 g/dL (3.4-5.0) Albumin/Globulin Ratio 1.3 (1.0-1.7) Thyroid Stimulating Hormone (TSH) 0.870 uIU/mL (0.358-3.74) Laboratory Tests 02/07/20 10:20 Laboratory Tests 02/07/20 10:20 Vital Signs: Vital Signs Date Time Temp Pulse Resp B/P (MAP) Pulse Ox O2 Delivery O2 Flow Rate FiO2 02/07/20 09:57 98.2 122 18 142/73 (96) 99 Room Air 98.2 EKG: EKG: [EKG interpretation: 9: 58 AM on 02/07/2020 HR: 118 Sinus tachycardia Regular intervals Normal axis Nonspecific ST changes ] Radiology/Procedures: Radiology/Procedures: [] Course & Med Decision Making: Course & Med Decision Making Pertinent Labs reviewed. (See chart for details) Patient's labs are within normal limits. Patient has received 1 L IV fluids in the ER. Patient's heart rate is now 110. I have ordered a second liter of IV fluids Patient's oxygen saturation is 100% on room air. Blood pressure is within normal limits. Patient is an active smoker but has no other risk factors for PE. After 2 L of IV fluids, patient has heart rate of 101. Patient states that she is feeling so much better and would like to be discharged home. Patient to follow-up with PCP as an outpatient. Discussed results and plan of care with patient. Patient is instructed to follow up with PCP in one to 2 days. Appropriate discharge instructions given to patient to return to the ED or to seek immediate medical evaluation. Patient is instructed to return to the ED if symptoms worsen or if any concerns. Dragon Disclaimer: Dragon Disclaimer: This electronic medical record was generated, in whole or in part, using a voice recognition dictation system. Departure Departure Impression: Primary Impression: Dehydration Additional Impression: Tachycardia Disposition: 01 HOME, SELF-CARE Condition: IMPROVED Referrals: UNKNOWN PCP NAME (PCP) Patient Instructions: Dehydration, Adult, Nonspecific Tachycardia Additional Instructions: Please return to the ED if symptoms worsen or if any concerns. Please follow-up with PCP in 1 to 2 days. ROMAN NOYOLA DO February 07, 2020 12:46
--- NOTE | 2020-02-08 07:23 | EKG ---
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
== END 2020-02-07 13:06 | disposition home or self-care (01) ==
LOC: ER 09:44
DX: E86.0 Dehydration (principal); R00.0 Tachycardia, unspecified; F17.200 Nicotine dependence, unspecified, uncomplicated; Z88.5 Allergy status to narcotic agent; Z87.442 Personal history of urinary calculi
CPT/HCPCS: 36415; 80053; 83735; 84443; 84484; 85025; 93005; 96360; 96361; 99285; J7030

== ENCOUNTER 2020-02-13 05:56 | Emergency (ER) | payer SELFPAY ==
[~2020-02-13] VITALS: Ht 167.6 cm; Wt 89.5 kg
[2020-02-13] MEDS ORDERED: CONTRAST GIVEN. MC PRN (06:45)
--- NOTE | 2020-02-13 06:54 | PHYS DOC ---
Past Medical History Past Medical History: GERD, Kidney Stone Past Surgical History: , Other Additional Past Surgical Histo: nephrolithotomy Smoking Status: Current Every Day Smoker Alcohol Use: None General Adult EDM: Chief Complaint: CHEST PAIN HPI: HPI: Patient is a 34 year old female who presented to ER today for evaluation of chest pain, heaviness in nature, trouble breathing for about a week. Patient is a smoker, denies any recent travel or operation. Patient denied having fever, not been exposed to anybody who tested positive for COVID-19. Patient was seen here on February 06 for the same problem, at that time her heart rate was really fast, she was found to be dehydrated, she was given IV fluids. She was discharged home, continues to feel like somebody sitting on her chest. Patient denies any diabetic history, no history hypertension, no history of blood clot disorder. Review of Systems: Review of Systems: Constitutional: Denies fever or chills. [] Eyes: Denies change in visual acuity. [] HENT: Denies nasal congestion or sore throat. [] Respiratory: Denies cough, positive for trouble breathing. Cardiovascular: Positive for chest pain, no edema or swelling. GI: Denies abdominal pain, nausea, vomiting, bloody stools or diarrhea. [] : Denies dysuria. [] Musculoskeletal: Denies back pain or joint pain. [] Integument: Denies rash. [] Neurologic: Denies headache, focal weakness or sensory changes. [] Endocrine: Denies polyuria or polydipsia. [] Lymphatic: Denies swollen glands. [] Psychiatric: Denies depression or anxiety. [] Heart Score: HEART Score for Chest Pain: HEART Score for Chest Pain Response (Comments) Value History Slighlty/Non-Suspicious 0 ECG Normal 0 Age < 45 0 Risk Factors 1 or 2 Risk Factors 1 Troponin < Normal Limit 0 Total 1 Risk Factors: Risk Factors: DM, Current or recent (<one month) smoker, HTN, HLP, family history of CAD, obesity. Risk Scores: Score 0 - 3: 2.5% MACE over next 6 weeks - Discharge Home Score 4 - 6: 20.3% MACE over next 6 weeks - Admit for Clinical Observation Score 7 - 10: 72.7% MACE over next 6 weeks - Early Invasive Strategies Current Medications: Current Medications Medications (Trade) Dose Ordered Sig/Nena Start Time Stop Time Status Last Admin Dose Admin Info (CONTRAST GIVEN -- Rx MONITORING) 1 each PRN DAILY PRN 02/13/20 06:45 02/15/20 06:44 Iohexol (Omnipaque 350 Mg/ml) 100 ml 1X ONCE 02/13/20 07:00 02/13/20 07:01 Sodium Chloride 1,000 ml @ 1,000 mls/hr 1X ONCE 02/13/20 07:00 02/13/20 07:59 02/13/20 06:46 1,000 MLS/HR Allergies: Allergies: Allergies Coded Allergies Type Severity Reaction Last Updated Verified morphine Adverse Reaction Intermediate Vomiting 08/12/17 Yes Physical Exam: PE: Constitutional: Well developed, well nourished, no acute distress, non-toxic appearance. [] HENT: Normocephalic, atraumatic, bilateral external ears normal, oropharynx moist, no oral exudates, nose normal. [] Eyes: PERRLA, EOMI, conjunctiva normal, no discharge. [] Neck: Normal range of motion, no tenderness, supple, no stridor. [] Cardiovascular:Heart rate regular rhythm, no murmur [] Lungs & Thorax: Bilateral breath sounds clear to auscultation [] Abdomen: Bowel sounds normal, soft, no tenderness, no masses, no pulsatile mass es. [] Skin: Warm, dry, no erythema, no rash. [] Back: No tenderness, no CVA tenderness. [] Extremities: No tenderness, no cyanosis, no clubbing, ROM intact, no edema. [] Neurologic: Alert and oriented X 3, normal motor function, normal sensory function, no focal deficits noted. [] Psychologic: Affect normal, judgement normal, mood normal. [] Current Patient Data: Labs: Laboratory Tests Test 02/13/20 06:33 POC Urine HCG, Qualitative Hcg negative (Negative) Vital Signs: Vital Signs Date Time Temp Pulse Resp B/P (MAP) Pulse Ox O2 Delivery O2 Flow Rate FiO2 02/13/20 06:24 97.9 107 18 142/83 (102) 100 Room Air 97.9 EKG: EKG: EKG was done at 0604, heart rate 107 bpm, sinus tachycardia, no ST segment elevation. Normal QT interval. [] Radiology/Procedures: Radiology/Procedures: [] [address] [place] [address] IMAGING REPORT Signed PATIENT: CONNOR LITTLE ACCOUNT: [id number] : 1985 LOCATION: ER AGE: 34 SEX: F EXAM STATUS: REG ER ORD. PHYSICIAN: JUANI BERNAL DO REASON: epigastric pain, RUQ ,RIGHT LOWER CHEST PAIN PROCEDURE: ABDOMEN LTD ABDOMEN LTD: 02/13/2020 7:28 AM Indication: 34 years old Female. Epigastric pain, right upper quadrant pain. Right lower chest pain. Comparison: None. TECHNIQUE: Sonographic evaluation of the right upper quadrant was performed utilizing grayscale and color Doppler imaging. FINDINGS: Liver: Homogenous normal echotexture.. There is hepatopedal flow within the portal venous system. Right hepatic lobe measures 17.9 cm. Biliary system: CBD measures 3 mm. There is no intrahepatic or extrahepatic biliary dilatation. Gallbladder: Cholelithiasis with wall echo shadow, limiting evaluation. Sonographic Rosen sign: Negative Pancreas: Visualized head and uncinate process are unremarkable. Body and tail are not visualized. Right kidney: 12.2 x 5.9 x 5.4 cm. No hydronephrosis. Normal echotexture without focal mass or renal calculus. Free fluid:None. IMPRESSION: Cholelithiasis with wall echo shadow which limits evaluation. No definite findings to suggest acute cholecystitis. Electronically signed by: Justina Hernandez MD (02/13/2020 8:11 AM) [facility] DICTATED and SIGNED BY: JUSTINA HERNANDEZ MD DATE: 02/13/20 [address] [place] [address] IMAGING REPORT Signed PATIENT: CONNOR LITTLE ACCOUNT: [id number] : 1985 LOCATION: ER AGE: 34 SEX: F EXAM STATUS: REG ER ORD. PHYSICIAN: JUANI BERNAL DO REASON: chest pain, soa, feeling dizzy, smoker. PROCEDURE: CT ANGIOGRAPHY CHEST CT angiography chest with contrast PQRS statement: CT scans at this facility use dose reduction including either automated exposure control, iterative reconstructions, and /or weight based radiation dosing via mA and kV modification when appropriate to reduce radiation dose to as low as reasonably achievable. HISTORY: Chest pain, shortness of breath, dizziness. TECHNIQUE: CT imaging the chest with 3-D MIP reconstructions of the pulmonary arteries with 100 mL Omnipaque 350 intravenous contrast. FINDINGS: Heart size is normal. Esophagus and thoracic aorta are normal. No adenopathy in the chest. No pulmonary artery emboli. Large gallstones completely fill the gallbladder versus calcification of the wall from porcelain gallbladder. This extends outside the [id number]. No pneumothorax, pulmonary opacities or pleural effusions. 4 mm solid nodule or lymph node minor fissure image 65. Bones are unremarkable. IMPRESSION: 1. No acute process in the chest. No pulmonary artery emboli. 2. 4 mm solid nodule versus fissural lymph node at the minor fissure. Per Fleischner guidelines if the patient has risk factors for malignancy optional CT follow-up in 12 months would be advised, otherwise no follow-up is necessary. 3. Large ovoid gallstones completely filling the lumen of the gallbladder versus calcification or gallbladder wall from porcelain gallbladder. Electronically signed by: Milana Mcgill MD (02/13/2020 7:22 AM) [id number] DICTATED and SIGNED BY: MILANA MCGILL MD DATE: 02/13/20721 Course & Med Decision Making: Course & Med Decision Making Pertinent Labs and Imaging studies reviewed. (See chart for details) [] Dragon Disclaimer: Dragmira Disclaimer: This electronic medical record was generated, in whole or in part, using a voice recognition dictation system. Departure Departure Impression: Primary Impression: Biliary colic Disposition: HOME, SELF-CARE Condition: IMPROVED Referrals: UNKNOWN PCP NAME (PCP) VICTOR M GAMEZ MD PLEASE CALL THIS GENERAL SURGEON FOR OUTPATIENT FOLLOW UP NEXT WEEK. Patient Instructions: Biliary Colic Additional Instructions: Thank you for visiting our Emergency Department. We appreciate you trusting us with your care. If any additional problems come up don't hesitate to return to visit us. Please follow up with your primary care provider so they can plan additional care if needed and know about the problem that you had. If symptoms worsen come back to the Emergency Department. Any concerning symptoms that start such as chest pain, shortness of air, weakness or numbness on one side of the body, running high fevers or any other concerning symptoms return to the ER. Scripts Tramadol Hcl (TRAMADOL HCL) 50 Mg Tablet 50 MG PO Q6HRS PRN for PAIN, #20 TAB Prov: JUANI BERNAL DO 02/13/20 Justicifation of Admission Dx: Justifications for Admission: Justification of Admission Dx: N/A JUANI BERNAL DO Feb 13, 2020 06:54
[2020-02-13] MEDS ORDERED: IOHEXOL 350 MG/ML 100 ML VIAL. IV ONE (07:00)
[2020-02-13] MEDS ORDERED: IV NORMAL SALINE 1000ML BAG 1,000 ML IV ONE (07:00)
[2020-02-13 07:05] LABS: BASO % 1 % (0-3); EOS # 0.1 x10^3/uL (0.0-0.7); EOS % 1 % (0-3); HEMATOCRIT 45.8 % (36.0-47.0); HEMOGLOBIN 15.7 g/dL (12.0-15.5); LYMPH # 2.5 x10^3/uL (1.0-4.8); LYMPH % 25 % (24-48); MEAN CORPUSCULAR HEMOGLOBIN 30 pg (25-35); MEAN CORPUSCULAR HGB CONC 34 g/dL (31-37); MEAN CORPUSCULAR VOLUME 87 fL (79-100); MONO # 0.6 x10^3/uL (0.0-1.1); MONO % 6 % (0-9); NEUT # 6.8 x10^3/uL (1.8-7.7); NEUT % 68 % (31-73); PLATELET COUNT 242 x10^3/uL (140-400); RED BLOOD COUNT 5.26 x10^6/uL (3.50-5.40); RED CELL DISTRIBUTION WIDTH 13.2 % (11.5-14.5)
[2020-02-13 07:15] LABS: CALCIUM 9.1 mg/dL (8.5-10.1); CREATININE 1.1 mg/dL (0.6-1.0); GFR 57.2; POTASSIUM 3.2 mmol/L (3.5-5.1)
[2020-02-13] MEDS ORDERED: LIDO:MAALOX 1:1 20 ML SINGLE DOSE. SWSW ONE (07:15)
[2020-02-13] MEDS ORDERED: FAMOTIDINE 20 MG/2 ML VIAL IVP ONE (07:15)
[2020-02-13 07:21] LABS: ALBUMIN 4.4 g/dL (3.4-5.0); ALBUMIN/GLOBULIN RATIO 1.3 (1.0-1.7); TOTAL BILIRUBIN 1.1 mg/dL (0.2-1.0); TOTAL PROTEIN 7.7 g/dL (6.4-8.2)
--- NOTE | 2020-02-13 07:24 | RAD ---
CT angiography chest with contrast PQRS statement: CT scans at this facility use dose reduction including either automated exposure control, iterative reconstructions, and /or weight based radiation dosing via mA and kV modification when appropriate to reduce radiation dose to as low as reasonably achievable. HISTORY: Chest pain, shortness of breath, dizziness. TECHNIQUE: CT imaging the chest with 3-D MIP reconstructions of the pulmonary arteries with 100 mL Omnipaque 350 intravenous contrast. FINDINGS: Heart size is normal. Esophagus and thoracic aorta are normal. No adenopathy in the chest. No pulmonary artery emboli. Large gallstones completely fill the gallbladder versus calcification of the wall from porcelain gallbladder. This extends outside the [id number]. No pneumothorax, pulmonary opacities or pleural effusions. 4 mm solid nodule or lymph node minor fissure image 65. Bones are unremarkable. IMPRESSION: 1. No acute process in the chest. No pulmonary artery emboli. 2. 4 mm solid nodule versus fissural lymph node at the minor fissure. Per Fleischner guidelines if the patient has risk factors for malignancy optional CT follow-up in 12 months would be advised, otherwise no follow-up is necessary. 3. Large ovoid gallstones completely filling the lumen of the gallbladder versus calcification or gallbladder wall from porcelain gallbladder. Electronically signed by: Erasmo Schneider MD (02/13/2020 7:22 AM) [id number]
--- NOTE | 2020-02-13 08:14 | RAD ---
ABDOMEN LTD: 02/13/2020 7:28 AM Indication: 34 years old Female. Epigastric pain, right upper quadrant pain. Right lower chest pain. Comparison: None. TECHNIQUE: Sonographic evaluation of the right upper quadrant was performed utilizing grayscale and color Doppler imaging. FINDINGS: Liver: Homogenous normal echotexture.. There is hepatopedal flow within the portal venous system. Right hepatic lobe measures 17.9 cm. Biliary system: CBD measures 3 mm. There is no intrahepatic or extrahepatic biliary dilatation. Gallbladder: Cholelithiasis with wall echo shadow, limiting evaluation. Sonographic Rosen sign: Negative Pancreas: Visualized head and uncinate process are unremarkable. Body and tail are not visualized. Right kidney: 12.2 x 5.9 x 5.4 cm. No hydronephrosis. Normal echotexture without focal mass or renal calculus. Free fluid:None. IMPRESSION: Cholelithiasis with wall echo shadow which limits evaluation. No definite findings to suggest acute cholecystitis. Electronically signed by: Maty Goodwin MD (02/13/2020 8:11 AM) KOMAL
[2020-02-13 09:21] VITALS: BP 120/73
[2020-02-13] MEDS ORDERED: TRAM50TA PO (09:31)
--- NOTE | 2020-02-14 04:28 | EKG ---
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
== END 2020-02-13 09:38 | disposition home or self-care (01) ==
LOC: ER 05:56
DX: K80.70 Calculus of gallbladder and bile duct without cholecystitis without obstruction (principal); R07.89 Other chest pain; E86.0 Dehydration; K21.9 Gastro-esophageal reflux disease without esophagitis; F17.200 Nicotine dependence, unspecified, uncomplicated; Z87.442 Personal history of urinary calculi; Z98.890 Other specified postprocedural states; Z88.6 Allergy status to analgesic agent
CPT/HCPCS: 36415; 71275; 76705; 80053; 81025; 83690; 84484; 85025; 93005; 96361; 96374; 99285; J3490; J7030; Q9967

== ENCOUNTER 2020-02-14 08:58 | Inpatient (IN) | payer SELFPAY ==
[~2020-02-14] VITALS: Ht 162.6 cm; Wt 94.7 kg
[~2020-02-14 08:58] MED LIST changes: +TRAM50TA PO
[2020-02-14] MEDS ORDERED: ONDANSETRON PF 4 MG/2 ML VIAL. IVP ONE (09:15)
[2020-02-14] MEDS ORDERED: fentaNYL PF VIAL 100 MCG/2 ML VIAL IVP ONE (09:15)
[2020-02-14 09:33] LABS: BILIRUBIN,URINE NEGATIVE (NEG); CLARITY,URINE CLEAR; COLOR,URINE YELLOW; NITRITE,URINE NEGATIVE (NEG); PROTEIN,URINE NEGATIVE (NEG-TRACE); UROBILINOGEN,URINE 0.2 mg/dL (0.2 mg/dL)
[2020-02-14 09:35] LABS: BASO % 0 % (0-3); EOS % 0 % (0-3); HEMATOCRIT 45.1 % (36.0-47.0); HEMOGLOBIN 15.5 g/dL (12.0-15.5); LYMPH # 1.8 x10^3/uL (1.0-4.8); LYMPH % 17 % (24-48); MEAN CORPUSCULAR HEMOGLOBIN 30 pg (25-35); MEAN CORPUSCULAR HGB CONC 34 g/dL (31-37); MEAN CORPUSCULAR VOLUME 88 fL (79-100); MONO # 0.6 x10^3/uL (0.0-1.1); MONO % 5 % (0-9); NEUT # 8.3 x10^3/uL (1.8-7.7); NEUT % 78 % (31-73); PLATELET COUNT 249 x10^3/uL (140-400); RED BLOOD COUNT 5.14 x10^6/uL (3.50-5.40); WHITE BLOOD COUNT 10.8 x10^3/uL (4.0-11.0)
[2020-02-14 09:41] LABS: CALCIUM 8.6 mg/dL (8.5-10.1); GFR 63.9; POTASSIUM 3.3 mmol/L (3.5-5.1)
[2020-02-14 09:43] LABS: ALBUMIN 4.5 g/dL (3.4-5.0); ALBUMIN/GLOBULIN RATIO 1.4 (1.0-1.7); TOTAL BILIRUBIN 1.3 mg/dL (0.2-1.0); TOTAL PROTEIN 7.8 g/dL (6.4-8.2)
[2020-02-14 09:45] LABS: WBC,URINE OCC /HPF (0-4)
[2020-02-14 09:46] LABS: BACTERIA,URINE MANY /HPF (0-FEW); SQUAMOUS EPITHELIAL CELL,UR MANY /LPF
--- NOTE | 2020-02-14 09:53 | PHYS DOC ---
Past Medical History Past Medical History: GERD, Kidney Stone Past Surgical History: , Other Additional Past Surgical Histo: nephrolithotomy Smoking Status: Current Every Day Smoker Additional Information: 1/2 ppd Alcohol Use: None General Adult EDM: Chief Complaint: ABDOMINAL PAIN HPI: HPI: Patient is a 34 year old female who presented to ER today for evaluation epigastric and right upper quad abdominal pain. Patient was seen here on February 06 for the same symptom, she was seen here again on February 12 for the same problem, she was found to have gallstones yesterday. Patient was given pain medication in the ER, her pain was under control therefore she was discharged home, with pain medication, was given follow-up information with the general surgeon on- call so that she can call for outpatient evaluation. However patient said during the night she still having pain, pain, intensified earlier this morning so she came back here for evaluation. Patient denies any fever. Review of Systems: Review of Systems: Constitutional: Denies fever or chills. [] Eyes: Denies change in visual acuity. [] HENT: Denies nasal congestion or sore throat. [] Respiratory: Denies cough or shortness of breath. [] Cardiovascular: Denies chest pain or edema. [] GI: Positive for abdominal pain, nausea, vomiting] : Denies dysuria. [] Musculoskeletal: Denies back pain or joint pain. [] Integument: Denies rash. [] Neurologic: Denies headache, focal weakness or sensory changes. [] Endocrine: Denies polyuria or polydipsia. [] Lymphatic: Denies swollen glands. [] Psychiatric: Denies depression or anxiety. [] Heart Score: Risk Factors: Risk Factors: DM, Current or recent (<one month) smoker, HTN, HLP, family history of CAD, obesity. Risk Scores: Score 0 - 3: 2.5% MACE over next 6 weeks - Discharge Home Score 4 - 6: 20.3% MACE over next 6 weeks - Admit for Clinical Observation Score 7 - 10: 72.7% MACE over next 6 weeks - Early Invasive Strategies Current Medications: Current Medications Medications (Trade) Dose Ordered Sig/Nena Start Time Stop Time Status Last Admin Dose Admin Fentanyl Citrate (Fentanyl 2ml Vial) 50 mcg 1X ONCE 02/14/20 09:15 02/14/20 09:29 DC Ondansetron HCl (Zofran) 4 mg 1X ONCE 02/14/20 09:15 02/14/20 09:29 DC Allergies: Allergies: Allergies Coded Allergies Type Severity Reaction Last Updated Verified morphine Adverse Reaction Intermediate Vomiting 08/12/17 Yes Physical Exam: PE: Constitutional: Well developed, well nourished, no acute distress, non-toxic appearance. [] HENT: Normocephalic, atraumatic, bilateral external ears normal, oropharynx moist, no oral exudates, nose normal. [] Eyes: PERRLA, EOMI, conjunctiva normal, no discharge. [] Neck: Normal range of motion, no tenderness, supple, no stridor. [] Cardiovascular:Heart rate regular rhythm, no murmur [] Lungs & Thorax: Bilateral breath sounds clear to auscultation [] Abdomen: Bowel sounds normal, soft, there is tenderness to palpation in right up per quadrant and epigastric area, no rebound, no guarding., no pulsatile masses. [] Skin: Warm, dry, no erythema, no rash. [] Back: No tenderness, no CVA tenderness. [] Extremities: No tenderness, no cyanosis, no clubbing, ROM intact, no edema. [] Neurologic: Alert and oriented X 3, normal motor function, normal sensory function, no focal deficits noted. [] Psychologic: Affect normal, judgement normal, mood normal. [] Current Patient Data: Labs: Laboratory Tests Test 02/14/20 09:10 White Blood Count 10.8 x10^3/uL (4.0-11.0) Red Blood Count 5.14 x10^6/uL (3.50-5.40) Hemoglobin 15.5 g/dL (12.0-15.5) Hematocrit 45.1 % (36.0-47.0) Mean Corpuscular Volume 88 fL (79-100) Mean Corpuscular Hemoglobin 30 pg (25-35) Mean Corpuscular Hemoglobin Concent 34 g/dL (31-37) Red Cell Distribution Width 13.0 % (11.5-14.5) Platelet Count 249 x10^3/uL (140-400) Neutrophils (%) (Auto) 78 % (31-73) H Lymphocytes (%) (Auto) 17 % (24-48) L Monocytes (%) (Auto) 5 % (0-9) Eosinophils (%) (Auto) 0 % (0-3) Basophils (%) (Auto) 0 % (0-3) Neutrophils # (Auto) 8.3 x10^3/uL (1.8-7.7) H Lymphocytes # (Auto) 1.8 x10^3/uL (1.0-4.8) Monocytes # (Auto) 0.6 x10^3/uL (0.0-1.1) Eosinophils # (Auto) 0.0 x10^3/uL (0.0-0.7) Basophils # (Auto) 0.0 x10^3/uL (0.0-0.2) Sodium Level 140 mmol/L (136-145) Potassium Level 3.3 mmol/L (3.5-5.1) L Chloride Level 102 mmol/L (98-107) Carbon Dioxide Level 23 mmol/L (21-32) Anion Gap 15 (6-14) H Blood Urea Nitrogen 10 mg/dL (7-20) Creatinine 1.0 mg/dL (0.6-1.0) Estimated GFR (Cockcroft-Gault) 63.9 BUN/Creatinine Ratio 10 (6-20) Glucose Level 98 mg/dL (70-99) Calcium Level 8.6 mg/dL (8.5-10.1) Total Bilirubin 1.3 mg/dL (0.2-1.0) H Aspartate Amino Transferase (AST) 20 U/L (15-37) Alanine Aminotransferase (ALT) 21 U/L (14-59) Alkaline Phosphatase 73 U/L (46-116) Total Protein 7.8 g/dL (6.4-8.2) Albumin 4.5 g/dL (3.4-5.0) Albumin/Globulin Ratio 1.4 (1.0-1.7) Lipase 75 U/L (73-393) Laboratory Tests 02/14/20 09:10 Laboratory Tests 02/14/20 09:10 Vital Signs: Vital Signs Date Time Temp Pulse Resp B/P (MAP) Pulse Ox O2 Delivery O2 Flow Rate FiO2 02/14/20 09:05 98.5 102 16 150/96 (114) 100 Room Air 98.5 EKG: EKG: [] Radiology/Procedures: Radiology/Procedures: [] Course & Med Decision Making: Course & Med Decision Making Pertinent Labs and Imaging studies reviewed. (See chart for details) Patient is a 33-year-old female who presented to ER for right upper quadrant abdominal pain, epigastric pain. Patient was found to have gallstones on u ltrasound yesterday. Her pain is due to biliary colic. Patient developed nausea vomiting today, therefore she will be admitted to hospital, she will be consulted by general surgery for evaluation of her gallstone problem. Patient is amenable to plan of care. Dragon Disclaimer: Dragon Disclaimer: This electronic medical record was generated, in whole or in part, using a voice recognition dictation system. Departure Departure Impression: Primary Impression: Biliary colic Disposition: ADMITTED INPATIENT Admitting Physician: MOISÉS (DR. OROZCO) Condition: IMPROVED Referrals: UNKNOWN PCP NAME (PCP) Justicifation of Admission Dx: Justifications for Admission: Justification of Admission Dx: N/A JUANI BERNAL DO Feb 14, 2020 09:53
[2020-02-14 10:46] LABS: PROTHROMBIN TIME PATIENT 13.2 SEC (11.7-14.0)
[2020-02-14] MEDS ORDERED: ONDANSETRON PF 4 MG/2 ML VIAL. IV PRN (13:00)
[2020-02-14] MEDS ORDERED: fentaNYL PF VIAL 100 MCG/2 ML VIAL IV PRN (13:00)
[2020-02-14 13:35] VITALS: BP 131/86
--- NOTE | 2020-02-14 13:43 | PDOC1 ---
History and Physical Date of Admission Date of Admission DATE: 02/14/20 TIME: 13:41 Identification/Chief Complaint Chief Complaint seen in er with vomiting., inc RUQ PAIN 34 year old female who presented to ER today for evaluation epigastric and right upper quad abdominal pain. // was seen here on February 06 , again on February 12 for the same problem, she was found to have gallstones 02/12 Patient was given pain medication in the ER, her pain was under control therefore she was discharged home, with pain medication, was given follow-up information with the general surgeon on-call so that she can call for outpatient evaluation. patient said during the night she still having pain, pain, intensified earlier this morning Past Medical History Past Medical History Past Medical History Past Medical History Past Medical History: GERD, Kidney Stone GALLSTONES Past Surgical History: , Other Additional Past Surgical Histo: nephrolithotomy Smoking Status: Current Every Day Smoker Additional Information: 09/10 ppd Alcohol Use: None FHX OBESITY Family History Family History: High Cholestrol Social History Smoke: <1 pack per day ALCOHOL: none Drugs: None Current Problem List Problem List Problems Medical Problems: (1) Biliary colic Status: Acute Current Medications Current Medications Current Medications Fentanyl Citrate (Fentanyl 2ml Vial) 50 mcg 1X ONCE IVP Last administered on 02/14/20at 09:46; Start 02/14/20 at 09:15; Stop 02/14/20 at 09:29; Status DC Ondansetron HCl (Zofran) 4 mg 1X ONCE IVP Last administered on 02/14/20at 09:46; Start 02/14/20 at 09:15; Stop 02/14/20 at 09:29; Status DC Ondansetron HCl (Zofran) 4 mg PRN Q8HRS PRN IV NAUSEA/VOMITING; Start 02/14/20 at 13:00; Stop 02/15/20 at 12:59 Fentanyl Citrate (Fentanyl 2ml Vial) 50 mcg PRN Q1HR PRN IV PAIN; Start 02/14/20 at 13:00; Stop 02/15/20 at 12:59 Active Scripts Active Tramadol Hcl 50 Mg Tablet 50 Mg PO Q6HRS PRN Percocet 5-325 Mg Tablet (Oxycodone/Acetaminophen) 1 Each Tablet 1 Tab PO PRN Q6HRS PRN Ibuprofen 800 Mg Tablet 800 Mg PO PRN Q6HRS PRN Colace (Docusate Sodium) 100 Mg Capsule 100 Mg PO BID Reported Zantac (Ranitidine Hcl) 150 Mg Tablet 1 Tab PO BID PRN Tablet (Pnv Cmb#95/Ferrous Fumarate/Fa) 1 Each Tablet 1 Tab PO DAILY Allergies Allergies: Coded Allergies: morphine (Verified Adverse Reaction, Intermediate, Vomiting, 08/12/17) High fever ROS Review of System Review of Systems: Review of Systems: Constitutional: Denies fever or chills. [] Eyes: Denies change in visual acuity. [] HENT: Denies nasal congestion or sore throat. [] Respiratory: Denies cough or shortness of breath. [] Cardiovascular: Denies chest pain or edema. [] GI: Positive for abdominal pain, nausea, vomiting] : Denies dysuria. [] Musculoskeletal: Denies back pain or joint pain. [] Integument: Denies rash. [] Neurologic: Denies headache, focal weakness or sensory changes. [] Endocrine: Denies polyuria or polydipsia. [] Lymphatic: Denies swollen glands. [] Psychiatric: Denies depression or anxiety. [] 14 PT ROS OTHERWISE NEG Hematological and Lymphatic: No: Bleeding Problems, Blood Clots, Blood Transfusions, Brusing, Night Sweats, Pallor, Swollen Lymph Nodes, Other Respiratory: No: Cough, Hemoptysis, Orthopnea, Pleuritic Pain, Shortness of breath, SOB with excertion, Sputum Changes, Stridor, Tachypnea, Wheezing, Other Cardiovascular: No Chest Pain, No Palpitations, No Orthopnea, No Paroxysmal Noc. Dyspnea, No Edema, No Lt Headedness, No Other Gastrointestinal: Yes Nausea, Yes Vomiting, Yes Abdominal Pain; No Diarrhea, No Constipation, No Melena, No Hematochezia, No Other Genitourinary: No Dysuria, No Frequency, No Incontinence, No Hematuria, No Retention, No Discharge, No Urgency, No Pain, No Flank Pain, No Other, No , No , No , No , No , No , No Musculoskeletal: No Gait Disturbance, No Joint Pain, No Joint Stiffness, No Joint Swelling, No Muscle Pain, No Muscular Weakness, No Pain In:, No Swelling In:, No Other Neurological: No Behavorial Changes, No Bowel/Bladder ControlChng, No Confusion, No Dizziness, No Gait Disturbance, No Headaches, No Impaired Coord/balance, No Memory Loss, No Numbness/Tingling, No Seizures, No Speech Prob lems, No Tremors, No Visual Changes, No Weakness, No Other Skin: No Dry Skin, No Eczema, No Hair Changes, No Lumps, No Mole Changes, No Mottling, No Nail Changes, No Pruritus, No Rash, No Skin Lesion Changes, No Other, No Acne Physical Exam Physical Exam Physical Exam: PE: Constitutional: Well developed, well nourished, no acute distress, non-toxic appearance. [] HENT: Normocephalic, atraumatic, bilateral external ears normal, oropharynx moist, no oral exudates, nose normal. [] Eyes: PERRLA, EOMI, conjunctiva normal, no discharge. [] Neck: Normal range of motion, no tenderness, supple, no stridor. [] Cardiovascular:Heart rate regular rhythm, no murmur [] Lungs & Thorax: Bilateral breath sounds clear to auscultation [] Abdomen: Bowel sounds normal, soft, there is tenderness to palpation in right upper quadrant and epigastric area, no rebound, no guarding., no pulsatile masses. [] Skin: Warm, dry, no erythema, no rash. [] Back: No tenderness, no CVA tenderness. [] Extremities: No tenderness, no cyanosis, no clubbing, ROM intact, no edema. [] Neurologic: Alert and oriented X 3, normal motor function, normal sensory function, no focal deficits noted. [] Psychologic: Affect normal, judgement normal, mood normal. [] General: Alert, Oriented X3, Cooperative HEENT: Atraumatic, PERRLA, EOMI, Mucous membr. moist/pink Lungs: Clear to auscultation, Normal air movement Heart: RRR Breasts: Not examined Abdomen: Normal bowel sounds Rectal Exam: not examined PELVIC: Examination not indicated Extremities: No cyanosis Neuro: Normal speech, Cranial nerves 3-12 NL Psych/Mental Status: Mental status NL, Mood NL Vitals Vitals Vital Signs Date Time Temp Pulse Resp B/P (MAP) Pulse Ox O2 Delivery O2 Flow Rate FiO2 02/14/20 13:35 97.7 78 18 131/86 (101) 98 97.7 02/14/20 12:30 Room Air Labs Labs Laboratory Tests Test 02/14/20 09:10 White Blood Count 10.8 x10^3/uL (4.0-11.0) Red Blood Count 5.14 x10^6/uL (3.50-5.40) Hemoglobin 15.5 g/dL (12.0-15.5) Hematocrit 45.1 % (36.0-47.0) Mean Corpuscular Volume 88 fL (79-100) Mean Corpuscular Hemoglobin 30 pg (25-35) Mean Corpuscular Hemoglobin Concent 34 g/dL (31-37) Red Cell Distribution Width 13.0 % (11.5-14.5) Platelet Count 249 x10^3/uL (140-400) Neutrophils (%) (Auto) 78 % (31-73) Lymphocytes (%) (Auto) 17 % (24-48) Monocytes (%) (Auto) 5 % (0-9) Eosinophils (%) (Auto) 0 % (0-3) Basophils (%) (Auto) 0 % (0-3) Neutrophils # (Auto) 8.3 x10^3/uL (1.8-7.7) Lymphocytes # (Auto) 1.8 x10^3/uL (1.0-4.8) Monocytes # (Auto) 0.6 x10^3/uL (0.0-1.1) Eosinophils # (Auto) 0.0 x10^3/uL (0.0-0.7) Basophils # (Auto) 0.0 x10^3/uL (0.0-0.2) Prothrombin Time 13.2 SEC (11.7-14.0) Prothromb Time International Ratio 1.0 (0.8-1.1) Activated Partial Thromboplast Time 32 SEC (24-38) Urine Collection Type Unknown Urine Color Yellow Urine Clarity Clear Urine pH 7.0 (<5.0-8.0) Urine Specific [place] 1.010 (1.000-1.030) Urine Protein Negative mg/dL (NEG-TRACE) Urine Glucose (UA) Negative mg/dL (NEG) Urine Ketones (Stick) 15 mg/dL (NEG) Urine Blood Small (NEG) Urine Nitrite Negative (NEG) Urine Bilirubin Negative (NEG) Urine Urobilinogen Dipstick 0.2 mg/dL (0.2 mg/dL) Urine Leukocyte Esterase Negative (NEG) Urine RBC 6-10 /HPF (0-2) Urine WBC Occ /HPF (0-4) Urine Squamous Epithelial Cells Many /LPF Urine Bacteria Many /HPF (0-FEW) Sodium Level 140 mmol/L (136-145) Potassium Level 3.3 mmol/L (3.5-5.1) Chloride Level 102 mmol/L (98-107) Carbon Dioxide Level 23 mmol/L (21-32) Anion Gap 15 (6-14) Blood Urea Nitrogen 10 mg/dL (7-20) Creatinine 1.0 mg/dL (0.6-1.0) Estimated GFR (Cockcroft-Gault) 63.9 BUN/Creatinine Ratio 10 (6-20) Glucose Level 98 mg/dL (70-99) Calcium Level 8.6 mg/dL (8.5-10.1) Total Bilirubin 1.3 mg/dL (0.2-1.0) Aspartate Amino Transf (AST/SGOT) 20 U/L (15-37) Alanine Aminotransferase (ALT/SGPT) 21 U/L (14-59) Alkaline Phosphatase 73 U/L (46-116) Total Protein 7.8 g/dL (6.4-8.2) Albumin 4.5 g/dL (3.4-5.0) Albumin/Globulin Ratio 1.4 (1.0-1.7) Lipase 75 U/L (73-393) Laboratory Tests Test 02/14/20 09:10 White Blood Count 10.8 x10^3/uL (4.0-11.0) Red Blood Count 5.14 x10^6/uL (3.50-5.40) Hemoglobin 15.5 g/dL (12.0-15.5) Hematocrit 45.1 % (36.0-47.0) Mean Corpuscular Volume 88 fL (79-100) Mean Corpuscular Hemoglobin 30 pg (25-35) Mean Corpuscular Hemoglobin Concent 34 g/dL (31-37) Red Cell Distribution Width 13.0 % (11.5-14.5) Platelet Count 249 x10^3/uL (140-400) Neutrophils (%) (Auto) 78 % (31-73) Lymphocytes (%) (Auto) 17 % (24-48) Monocytes (%) (Auto) 5 % (0-9) Eosinophils (%) (Auto) 0 % (0-3) Basophils (%) (Auto) 0 % (0-3) Neutrophils # (Auto) 8.3 x10^3/uL (1.8-7.7) Lymphocytes # (Auto) 1.8 x10^3/uL (1.0-4.8) Monocytes # (Auto) 0.6 x10^3/uL (0.0-1.1) Eosinophils # (Auto) 0.0 x10^3/uL (0.0-0.7) Basophils # (Auto) 0.0 x10^3/uL (0.0-0.2) Prothrombin Time 13.2 SEC (11.7-14.0) Prothromb Time International Ratio 1.0 (0.8-1.1) Activated Partial Thromboplast Time 32 SEC (24-38) Urine Collection Type Unknown Urine Color Yellow Urine Clarity Clear Urine pH 7.0 (<5.0-8.0) Urine Specific [place] 1.010 (1.000-1.030) Urine Protein Negative mg/dL (NEG-TRACE) Urine Glucose (UA) Negative mg/dL (NEG) Urine Ketones (Stick) 15 mg/dL (NEG) Urine Blood Small (NEG) Urine Nitrite Negative (NEG) Urine Bilirubin Negative (NEG) Urine Urobilinogen Dipstick 0.2 mg/dL (0.2 mg/dL) Urine Leukocyte Esterase Negative (NEG) Urine RBC 6-10 /HPF (0-2) Urine WBC Occ /HPF (0-4) Urine Squamous Epithelial Cells Many /LPF Urine Bacteria Many /HPF (0-FEW) Sodium Level 140 mmol/L (136-145) Potassium Level 3.3 mmol/L (3.5-5.1) Chloride Level 102 mmol/L (98-107) Carbon Dioxide Level 23 mmol/L (21-32) Anion Gap 15 (6-14) Blood Urea Nitrogen 10 mg/dL (7-20) Creatinine 1.0 mg/dL (0.6-1.0) Estimated GFR (Cockcroft-Gault) 63.9 BUN/Creatinine Ratio 10 (6-20) Glucose Level 98 mg/dL (70-99) Calcium Level 8.6 mg/dL (8.5-10.1) Total Bilirubin 1.3 mg/dL (0.2-1.0) Aspartate Amino Transf (AST/SGOT) 20 U/L (15-37) Alanine Aminotransferase (ALT/SGPT) 21 U/L (14-59) Alkaline Phosphatase 73 U/L (46-116) Total Protein 7.8 g/dL (6.4-8.2) Albumin 4.5 g/dL (3.4-5.0) Albumin/Globulin Ratio 1.4 (1.0-1.7) Lipase 75 U/L (73-393) Images Images CT angiography chest with contrast PQRS statement: CT scans at this facility use dose reduction including either automated exposure control, iterative reconstructions, and /or weight based radiation dosing via mA and kV modification when appropriate to reduce radiation dose to as low as reasonably achievable. HISTORY: Chest pain, shortness of breath, dizziness. TECHNIQUE: CT imaging the chest with 3-D MIP reconstructions of the pulmonary arteries with 100 mL Omnipaque 350 intravenous contrast. FINDINGS: Heart size is normal. Esophagus and thoracic aorta are normal. No adenopathy in the chest. No pulmonary artery emboli. Large gallstones completely fill the gallbladder versus calcification of the wall from porcelain gallbladder. This extends outside the [id number]. No pneumothorax, pulmonary opacities or pleural effusions. 4 mm solid nodule or lymph node minor fissure image 65. Bones are unremarkable. IMPRESSION: 1. No acute process in the chest. No pulmonary artery emboli. 2. 4 mm solid nodule versus fissural lymph node at the minor fissure. Per Fleischner guidelines if the patient has risk factors for malignancy optional CT follow-up in 12 months would be advised, otherwise no follow-up is necessary. 3. Large ovoid gallstones completely filling the lumen of the gallbladder versus calcification or gallbladder wall from porcelain gallbladder. Electronically signed by: Milana Mcgill MD (02/13/2020 7:22 AM) [id number] DICTATED and SIGNED BY: MILANA MCGILL MD DATE: 02/13/20 0722 ABDOMEN LTD: 02/13/2020 7:28 AM Indication: 34 years old Female. Epigastric pain, right upper quadrant pain. Right lower chest pain. Comparison: None. TECHNIQUE: Sonographic evaluation of the right upper quadrant was performed utilizing grayscale and color Doppler imaging. FINDINGS: Liver: Homogenous normal echotexture.. There is hepatopedal flow within the portal venous system. Right hepatic lobe measures 17.9 cm. Biliary system: CBD measures 3 mm. There is no intrahepatic or extrahepatic biliary dilatation. Gallbladder: Cholelithiasis with wall echo shadow, limiting evaluation. Sonographic Rosen sign: Negative Pancreas: Visualized head and uncinate process are unremarkable. Body and tail are not visualized. Right kidney: 12.2 x 5.9 x 5.4 cm. No hydronephrosis. Normal echotexture without focal mass or renal calculus. Free fluid:None. IMPRESSION: Cholelithiasis with wall echo shadow which limits evaluation. No definite findings to suggest acute cholecystitis. Electronically signed by: Justina Hernandez MD (02/13/2020 8:11 AM) [facility] DICTATED and SIGNED BY: JUSTINA HERNANDEZ MD DATE: 02/13/20 0811 VTE Prophylaxis Ordered VTE Prophylaxis Devices: No VTE Pharmacological Prophylaxi: Yes Assessment/Plan Assessment/Plan IMPRESSION: SYMPTOMATIC GALLSTONES Cholelithiasis with wall echo shadow which limits evaluation. No definite findings to suggest acute cholecystitis. Large ovoid gallstones completely filling the lumen of the gallbladder versus calcification or gallbladder wall from porcelain gallbladder. RUQ DISCOMFORT, PERSISTENT , FAILED outpt treatment Morbid obesity TOBACCO abuse disorder plan admit gen surgery consult npo iv fluid support iv protonix dvt prophylaxis D/W ER DR Cantufation of Admission Dx: Justifications for Admission: Justification of Admission Dx: Yes Comments: symptomatic gallstones, failed out patient treatment ALVAREZ OROZCO MD Feb 14, 2020 13:43
[2020-02-14] MEDS ORDERED: LORazepam 0.5 MG TABLET PO PRN (13:45)
[2020-02-14] MEDS ORDERED: ZOLPIDEM 5 MG TABLET. PO PRN (13:45)
[2020-02-14] MEDS ORDERED: cloNIDine HCL 0.1 MG TABLET PO PRN (13:45)
[2020-02-14] MEDS ORDERED: ACETAMINOPHEN 325 MG TABLET. PO PRN (13:45)
[2020-02-14] MEDS ORDERED: MAG HYDROX/ALUMINUM HYD/SIMETH 30 ML ORAL.SUSP PO PRN (13:45)
[2020-02-14] MEDS ORDERED: guaiFENesin ORAL 200 MG/10 ML LIQUID. PO PRN (13:45)
[2020-02-14] MEDS ORDERED: SODIUM PHOSPHATES 19/7GM 133 ML ENEMA. PR PRN (13:45)
[2020-02-14] MEDS ORDERED: 0.9 % SODIUM CHLORIDE 10 ML DISP.SYRIN. IV PRN (13:45)
[2020-02-14] MEDS ORDERED: DOCUSATE SODIUM 100 MG CAPSULE. PO PRN (13:45)
[2020-02-14] MEDS ORDERED: POTASSIUM CHLORIDE 20 MEQ TABLET.ER. PO ONE (14:00)
[2020-02-14 15:00] VITALS: BP 140/85
[2020-02-14] MEDS: ENOXAPARIN 40 MG/0.4 ML SYRINGE. SQ SCH (15:00)
[2020-02-14] MEDS: IPRATRPIUM/ALBUTEROL 0.5/2.5MG 3 ML NEBU. NEB SCH ×3 (15:02→20:08)
[2020-02-14] MEDS: IV NORMAL SALINE 1000ML BAG 1,000 ML IV SCH (17:40)
[2020-02-14] MEDS: PANTOPRAZOLE IV PUSH 40 MG VIAL. IVP SCH (17:40)
[2020-02-14] MEDS: ONDANSETRON PF 4 MG/2 ML VIAL. IV PRN (17:46)
[2020-02-14 19:00] VITALS: BP 123/77
[2020-02-14] MEDS ORDERED: FAMOTIDINE 20 MG TABLET. PO PRN (21:00)
[2020-02-14] MEDS ORDERED: ALBUTEROL SULFATE 2.5 MG/3 ML NEBU. NEB PRN (22:15)
[2020-02-14 23:00] VITALS: BP 128/70
[2020-02-15 03:00] VITALS: BP 106/60
[2020-02-15] MEDS: IV NORMAL SALINE 1000ML BAG 1,000 ML IV SCH ×3 (04:10→19:45)
[2020-02-15 05:55] LABS: CALCIUM 7.9 mg/dL (8.5-10.1); CREATININE 0.9 mg/dL (0.6-1.0); GFR 72.1; POTASSIUM 3.8 mmol/L (3.5-5.1)
[2020-02-15 07:25] VITALS: BP 126/71
[2020-02-15] MEDS: PRENATAL MULTIVITAMIN TABLET. PO SCH (07:53)
[2020-02-15] MEDS: PANTOPRAZOLE IV PUSH 40 MG VIAL. IVP SCH (07:58)
--- NOTE | 2020-02-15 09:06 | PDOC2 ---
CRYSTALPARKER Josh FINANCIAL MANAGER 02/15/20 0906: CONSULT Date of Consult Date of Consult DATE: 02/15/20 TIME: 08:58 Reason for Consult Reason for Consult: cholelithiasis Referring Physician Referring Physician: ER Identification/Chief Complaint Chief Complaint abdominal pain Source Source: Chart review, Patient History of Present Illness Reason for Visit: Reports issues with back pain for couple years. Started having epigastric pain, trouble breathing and nausea in January. Evaluated and thought related to anxiety. Seen in ER on 02/12--evaluated for PE and found to have gallstones. Does report that pain worsened with eating. Past Medical History GI: GERD Past Surgical History Past Surgical History: Family History Family History: Diabetes, High Cholestrol Social History <1 pack per day ALCOHOL: none Drugs: None Current Problem List Problem List Problems Medical Problems: (1) Biliary colic Status: Acute Current Medications Current Medications Current Medications Fentanyl Citrate (Fentanyl 2ml Vial) 50 mcg 1X ONCE IVP Last administered on 02/14/20at 09:46; Start 02/14/20 at 09:15; Stop 02/14/20 at 09:29; Status DC Ondansetron HCl (Zofran) 4 mg 1X ONCE IVP Last administered on 02/14/20at 09:46; Start 02/14/20 at 09:15; Stop 02/14/20 at 09:29; Status DC Ondansetron HCl (Zofran) 4 mg PRN Q8HRS PRN IV NAUSEA/VOMITING Last administered on 02/15/20at 08:14; Start 02/14/20 at 13:00; Stop 02/15/20 at 12:59 Fentanyl Citrate (Fentanyl 2ml Vial) 50 mcg PRN Q1HR PRN IV PAIN Last administered on 02/14/20at 22:13; Start 02/14/20 at 13:00; Stop 02/15/20 at 12:59 Sodium Chloride (Normal Saline Flush) 3 ml QSHIFT PRN IV AFTER MEDS AND BLOOD DRAWS; Start 02/14/20 at 13:45 Sodium Chloride 1,000 ml @ 100 mls/hr Q10H IV Last administered on 02/15/20at 04:10; Start 02/14/20 at 13:45 Ondansetron HCl (Zofran) 4 mg PRN Q4HRS PRN IV NAUSEA/VOMITING Last administered on 02/14/20at 17:46; Start 02/14/20 at 13:45 Zolpidem Tartrate (Ambien) 5 mg PRN QHS PRN PO INSOMNIA; Start 02/14/20 at 13:45 Acetaminophen (Tylenol) 650 mg PRN Q4HRS PRN PO TEMP OVER 100.4F OR MILD PAIN; Start 02/14/20 at 13:45 Al Hydroxide/Mg Hydroxide (Mylanta Plus Xs) 30 ml PRN DAILY PRN PO HEARTBURN / GAS; Start 02/14/20 at 13:45 Clonidine HCl (Catapres) 0.1 mg PRN Q6HRS PRN PO SBP>160 OR DBP>90; Start 02/14/20 at 13:45 Sodium Monofluorophosphate (Fleet Adult) [address] CONSTIPATION; Start 02/14/20 at 13:45 Docusate Sodium (Colace) 100 mg PRN BID PRN PO HARD STOOLS; Start 02/14/20 at 13:45 Albuterol/ Ipratropium (Duoneb) 3 ml Q4H NEB Last administered on 02/14/20at 20:08; Start 02/14/20 at 13:45; Stop 02/14/20 at 22:08; Status DC Guaifenesin (Robitussin) 200 mg PRN Q4HRS PRN PO COUGH; Start 02/14/20 at 13:45 Lorazepam (Ativan) 0.5 mg PRN Q4HRS PRN PO ANXIETY / AGITATION; Start 02/14/20 at 13:45 Enoxaparin Sodium (Lovenox 40mg Syringe) 40 mg Q24H SQ ; Start 02/14/20 at 15:00 Multivit/ Folic Acid/Iron (Multivitamin ) 1 tab DAILY PO ; Start 02/15/20 at 09:00 Famotidine (Pepcid) 20 mg PRN BID PRN PO HEARTBURN / GAS; Start 02/14/20 at 21:00 Pantoprazole Sodium (PROTONIX VIAL for IV PUSH) 40 mg DAILYAC IVP Last administered on 02/15/20at 07:58; Start 02/14/20 at 16:30 Potassium Chloride (Klor-Con) 40 meq 1X ONCE PO ; Start 02/14/20 at 14:00; Stop 02/14/20 at 14:19; Status DC Potassium Chloride (Klor-Con) 20 meq DAILYWBKFT PO ; Start 02/15/20 at 08:00 Albuterol Sulfate (Ventolin Neb Soln) 2.5 mg PRN Q4HRS PRN NEB SHORTNESS OF BREATH; Start 02/14/20 at 22:15 Active Scripts Active Tramadol Hcl 50 Mg Tablet 50 Mg PO Q6HRS PRN Percocet 5-325 Mg Tablet (Oxycodone/Acetaminophen) 1 Each Tablet 1 Tab PO PRN Q6HRS PRN Ibuprofen 800 Mg Tablet 800 Mg PO PRN Q6HRS PRN Colace (Docusate Sodium) 100 Mg Capsule 100 Mg PO BID Reported Zantac (Ranitidine Hcl) 150 Mg Tablet 1 Tab PO BID PRN Tablet (Pnv Cmb#95/Ferrous Fumarate/Fa) 1 Each Tablet 1 Tab PO DAILY Allergies Allergies: Coded Allergies: morphine (Verified Adverse Reaction, Intermediate, Vomiting, 08/12/17) High fever ROS General: No: Chills, Other (fevers ) PSYCHOLOGICAL ROS: No: Anxiety, Depression Eyes: No Blurry vision, No Double vision HEENT: No: Heacaches, Sore Throat Hematological and Lymphatic: No: Bleeding Problems, Blood Clots Respiratory: YES: Shortness of breath; No: Cough Cardiovascular: yes Chest Pain Gastrointestinal: Yes Nausea; No Diarrhea, No Constipation Genitourinary: No Dysuria, No Hematuria Musculoskeletal: No Joint Pain, No Muscle Pain Neurological: No Impaired Coord/balance, No Numbness/Tingling Skin: No Pruritus, No Rash Physical Exam General: Alert, Oriented X3, Cooperative, No acute distress HEENT: Atraumatic, PERRLA Lungs: Clear to auscultation, Normal air movement Heart: Regular rate, Normal S1, Normal S2 Abdomen: Soft, Other (ND, mildly ttp epigastric) Extremities: No clubbing, No cyanosis Skin: No rashes, No breakdown Neuro: Normal gait, Normal speech Psych/Mental Status: Mental status NL, Mood NL MUSCULOSKELETAL: No deformity, No swelling Vitals VITALS Vital Signs Date Time Temp Pulse Resp B/P (MAP) Pulse Ox O2 Delivery O2 Flow Rate FiO2 02/15/20 07:25 97.5 86 18 126/71 (89) 100 Room Air 97.5 Labs Labs Laboratory Tests Test 02/14/20 09:10 02/15/20 05:08 White Blood Count 10.8 x10^3/uL (4.0-11.0) Red Blood Count 5.14 x10^6/uL (3.50-5.40) Hemoglobin 15.5 g/dL (12.0-15.5) Hematocrit 45.1 % (36.0-47.0) Mean Corpuscular Volume 88 fL (79-100) Mean Corpuscular Hemoglobin 30 pg (25-35) Mean Corpuscular Hemoglobin Concent 34 g/dL (31-37) Red Cell Distribution Width 13.0 % (11.5-14.5) Platelet Count 249 x10^3/uL (140-400) Neutrophils (%) (Auto) 78 % (31-73) Lymphocytes (%) (Auto) 17 % (24-48) Monocytes (%) (Auto) 5 % (0-9) Eosinophils (%) (Auto) 0 % (0-3) Basophils (%) (Auto) 0 % (0-3) Neutrophils # (Auto) 8.3 x10^3/uL (1.8-7.7) Lymphocytes # (Auto) 1.8 x10^3/uL (1.0-4.8) Monocytes # (Auto) 0.6 x10^3/uL (0.0-1.1) Eosinophils # (Auto) 0.0 x10^3/uL (0.0-0.7) Basophils # (Auto) 0.0 x10^3/uL (0.0-0.2) Prothrombin Time 13.2 SEC (11.7-14.0) Prothromb Time International Ratio 1.0 (0.8-1.1) Activated Partial Thromboplast Time 32 SEC (24-38) Urine Collection Type Unknown Urine Color Yellow Urine Clarity Clear Urine pH 7.0 (<5.0-8.0) Urine Specific [place] 1.010 (1.000-1.030) Urine Protein Negative mg/dL (NEG-TRACE) Urine Glucose (UA) Negative mg/dL (NEG) Urine Ketones (Stick) 15 mg/dL (NEG) Urine Blood Small (NEG) Urine Nitrite Negative (NEG) Urine Bilirubin Negative (NEG) Urine Urobilinogen Dipstick 0.2 mg/dL (0.2 mg/dL) Urine Leukocyte Esterase Negative (NEG) Urine RBC 6-10 /HPF (0-2) Urine WBC Occ /HPF (0-4) Urine Squamous Epithelial Cells Many /LPF Urine Bacteria Many /HPF (0-FEW) Sodium Level 140 mmol/L (136-145) 139 mmol/L (136-145) Potassium Level 3.3 mmol/L (3.5-5.1) 3.8 mmol/L (3.5-5.1) Chloride Level 102 mmol/L (98-107) 106 mmol/L (98-107) Carbon Dioxide Level 23 mmol/L (21-32) 24 mmol/L (21-32) Anion Gap 15 (6-14) 9 (6-14) Blood Urea Nitrogen 10 mg/dL (7-20) 11 mg/dL (7-20) Creatinine 1.0 mg/dL (0.6-1.0) 0.9 mg/dL (0.6-1.0) Estimated GFR (Cockcroft-Gault) 63.9 72.1 BUN/Creatinine Ratio 10 (6-20) Glucose Level 98 mg/dL (70-99) 92 mg/dL (70-99) Calcium Level 8.6 mg/dL (8.5-10.1) 7.9 mg/dL (8.5-10.1) Total Bilirubin 1.3 mg/dL (0.2-1.0) Aspartate Amino Transf (AST/SGOT) 20 U/L (15-37) Alanine Aminotransferase (ALT/SGPT) 21 U/L (14-59) Alkaline Phosphatase 73 U/L (46-116) Total Protein 7.8 g/dL (6.4-8.2) Albumin 4.5 g/dL (3.4-5.0) Albumin/Globulin Ratio 1.4 (1.0-1.7) Lipase 75 U/L (73-393) Laboratory Tests Test 02/14/20 09:10 02/15/20 05:08 White Blood Count 10.8 x10^3/uL (4.0-11.0) Red Blood Count 5.14 x10^6/uL (3.50-5.40) Hemoglobin 15.5 g/dL (12.0-15.5) Hematocrit 45.1 % (36.0-47.0) Mean Corpuscular Volume 88 fL (79-100) Mean Corpuscular Hemoglobin 30 pg (25-35) Mean Corpuscular Hemoglobin Concent 34 g/dL (31-37) Red Cell Distribution Width 13.0 % (11.5-14.5) Platelet Count 249 x10^3/uL (140-400) Neutrophils (%) (Auto) 78 % (31-73) Lymphocytes (%) (Auto) 17 % (24-48) Monocytes (%) (Auto) 5 % (0-9) Eosinophils (%) (Auto) 0 % (0-3) Basophils (%) (Auto) 0 % (0-3) Neutrophils # (Auto) 8.3 x10^3/uL (1.8-7.7) Lymphocytes # (Auto) 1.8 x10^3/uL (1.0-4.8) Monocytes # (Auto) 0.6 x10^3/uL (0.0-1.1) Eosinophils # (Auto) 0.0 x10^3/uL (0.0-0.7) Basophils # (Auto) 0.0 x10^3/uL (0.0-0.2) Prothrombin Time 13.2 SEC (11.7-14.0) Prothromb Time International Ratio 1.0 (0.8-1.1) Activated Partial Thromboplast Time 32 SEC (24-38) Urine Collection Type Unknown Urine Color Yellow Urine Clarity Clear Urine pH 7.0 (<5.0-8.0) Urine Specific [place] 1.010 (1.000-1.030) Urine Protein Negative mg/dL (NEG-TRACE) Urine Glucose (UA) Negative mg/dL (NEG) Urine Ketones (Stick) 15 mg/dL (NEG) Urine Blood Small (NEG) Urine Nitrite Negative (NEG) Urine Bilirubin Negative (NEG) Urine Urobilinogen Dipstick 0.2 mg/dL (0.2 mg/dL) Urine Leukocyte Esterase Negative (NEG) Urine RBC 6-10 /HPF (0-2) Urine WBC Occ /HPF (0-4) Urine Squamous Epithelial Cells Many /LPF Urine Bacteria Many /HPF (0-FEW) Sodium Level 140 mmol/L (136-145) 139 mmol/L (136-145) Potassium Level 3.3 mmol/L (3.5-5.1) 3.8 mmol/L (3.5-5.1) Chloride Level 102 mmol/L (98-107) 106 mmol/L (98-107) Carbon Dioxide Level 23 mmol/L (21-32) 24 mmol/L (21-32) Anion Gap 15 (6-14) 9 (6-14) Blood Urea Nitrogen 10 mg/dL (7-20) 11 mg/dL (7-20) Creatinine 1.0 mg/dL (0.6-1.0) 0.9 mg/dL (0.6-1.0) Estimated GFR (Cockcroft-Gault) 63.9 72.1 BUN/Creatinine Ratio 10 (6-20) Glucose Level 98 mg/dL (70-99) 92 mg/dL (70-99) Calcium Level 8.6 mg/dL (8.5-10.1) 7.9 mg/dL (8.5-10.1) Total Bilirubin 1.3 mg/dL (0.2-1.0) Aspartate Amino Transf (AST/SGOT) 20 U/L (15-37) Alanine Aminotransferase (ALT/SGPT) 21 U/L (14-59) Alkaline Phosphatase 73 U/L (46-116) Total Protein 7.8 g/dL (6.4-8.2) Albumin 4.5 g/dL (3.4-5.0) Albumin/Globulin Ratio 1.4 (1.0-1.7) Lipase 75 U/L (73-393) Images Images Imaging reviewed from ER admission 02/12 Assessment/Plan Assessment/Plan Symptomatic cholelithiasis - Covid pending will keep NPO, possible OR pending testing VICTOR M GAMEZ MD 02/15/20 1226: CONSULT Assessment/Plan Assessment/Plan Pt seen and examined; reported to the hospital with upper abdominal pain, back pain, vomiting; has been recurrent. Evaluation consistent with cholecystitis. PMH/PSH/ROS/SH as above; exam: alert, oriented, no distress, lungs clear, heart RR and R, abdomen soft, obese, tender with palpation in RUQ, ext neg for edema. A/P) Calculous cholecystitis; recommend lap edenilson, Covid test results pending, will add to OR schedule tomorrow PARKER ROJAS APRN Feb 15, 2020 09:06 VICTOR M GAMEZ MD Feb 15, 2020 12:26
[2020-02-15 10:29] VITALS: BP 130/86
--- NOTE | 2020-02-15 11:57 | NUR ---
SW following. Discussed with RN, ONUR-19 pending for possible surgery. Pt from home, [facility]CF[facility] following for self pay status. SW will continue to follow.
[2020-02-15] MEDS ORDERED: fentaNYL PF VIAL 100 MCG/2 ML VIAL IVP PRN (14:15)
[2020-02-15] MEDS: POTASSIUM CHLORIDE 20 MEQ TABLET.ER. PO SCH (14:50)
[2020-02-15 15:00] VITALS: BP 119/71
[2020-02-15] MEDS: ENOXAPARIN 40 MG/0.4 ML SYRINGE. SQ SCH (15:00)
[2020-02-15 19:00] VITALS: BP 146/85
[2020-02-15] MEDS: PIPERACILLIN/TAZOBACTAM 3.375 GM in IV NORMAL SALINE 50ML 50 ML IV SCH (20:20)
[2020-02-15] MEDS: ONDANSETRON PF 4 MG/2 ML VIAL. IV PRN (22:24)
[2020-02-15 23:00] VITALS: BP 131/78
[2020-02-16] MEDS: PIPERACILLIN/TAZOBACTAM 3.375 GM in IV NORMAL SALINE 50ML 50 ML IV SCH ×3 (00:25→11:43)
[2020-02-16] MEDS: IV NORMAL SALINE 1000ML BAG 1,000 ML IV SCH (00:25)
[2020-02-16 03:00] VITALS: BP 138/53
--- NOTE | 2020-02-16 04:48 | NUR ---
Non-Administered 1944 NS due to current bag still running.
[2020-02-16 06:43] LABS: U PREG PATIENT NEGATIVE (NEG)
[2020-02-16] MEDS ORDERED: HYDROmorphone 2 MG/ML VIAL IV PRN (07:00)
[2020-02-16] MEDS ORDERED: LIDOCAINE 1% PF 2 ML VIAL. ID PRN (07:00)
[2020-02-16] MEDS ORDERED: fentaNYL PF VIAL 100 MCG/2 ML VIAL IV PRN ×2 (07:00)
[2020-02-16] MEDS ORDERED: IV RINGERS,LACTATED 1000ML 1,000 ML IV SCH (07:00)
[2020-02-16] MEDS ORDERED: ONDANSETRON PF 4 MG/2 ML VIAL. IV PRN (07:00)
[2020-02-16] MEDS ORDERED: SURGICEL HEMOSTAT 4X8 EACH. ONE (07:03)
[2020-02-16] MEDS ORDERED: IOHEXOL 300 MG/ML 50 ML VIAL. ONE (07:03)
[2020-02-16] MEDS ORDERED: BUPIVACAINE MPF 0.5% 30 ML VIAL. ONE (07:03)
[2020-02-16] MEDS ORDERED: MIDAZOLAM HCL/PF 2 MG/2 ML VIAL. ONE (07:11)
[2020-02-16] MEDS ORDERED: fentaNYL PF VIAL 100 MCG/2 ML VIAL ONE ×2 (07:11→09:13)
[2020-02-16] MEDS ORDERED: SCOPOLAMINE 1.5MG PATCH. TD ONE ×2 (07:21→07:30)
[2020-02-16] MEDS: PANTOPRAZOLE IV PUSH 40 MG VIAL. IVP SCH (07:27)
[2020-02-16] MEDS: POTASSIUM CHLORIDE 20 MEQ TABLET.ER. PO SCH (07:27)
[2020-02-16] MEDS: PRENATAL MULTIVITAMIN TABLET. PO SCH (07:27)
[2020-02-16] MEDS ORDERED: SCOPOLAMINE 1.5MG PATCH. TD SCH (07:30)
[2020-02-16] MEDS ORDERED: ROCURONIUM 50 MG/5 ML VIAL. ONE ×2 (08:09→10:54)
[2020-02-16] MEDS ORDERED: DEXAMETHASONE SOD PHOS 4 MG/ML VIAL ONE (08:28)
[2020-02-16] MEDS ORDERED: LIDOCAINE 2% PF 5 ML VIAL. ONE (08:28)
[2020-02-16] MEDS ORDERED: ONDANSETRON PF 4 MG/2 ML VIAL. ONE (08:28)
[2020-02-16] MEDS ORDERED: PROPOFOL 10 MG/ML (20ML) VIAL. IV ONE (08:28)
[2020-02-16] MEDS ORDERED: NEOSTIGMINE METHYLSULFATE 5 MG/5 ML SYRINGE. ONE (08:45)
[2020-02-16] MEDS ORDERED: GLYCOPYRROLATE 1 MG/5 ML VIAL. ONE (08:45)
--- NOTE | 2020-02-16 08:58 | PDOC4 ---
Operative Note Operative Note Operative Note: Preoperative Diagnosis: Calculus cholecystitis Postoperative Diagnosis: Same Procedure: Laparoscopic cholecystectomy with intraoperative cholangiogram Surgeons: Steve Anesthesia: GenMax Estimated Blood Loss: 10 mL Specimen: Gallbladder to pathology Drains: None Complications: None Indications: The patient is a 34-year-old female who was admitted with abdominal pain. Her evaluation is consistent with calculus cholecystitis. Surgical treatment was offered by means of a laparoscopic cholecystectomy. The risks of surgery were discussed which include bleeding, infection, bile duct injury, bile leak, pain, the potential for additional surgeries or procedures. The patient understands and would like to proceed. Description: The patient was taken to the operating room and laid supine on the operating table. General anesthesia was performed. The abdomen was prepped with ChloraPrep and draped in a standard surgical fashion. A small infraumbilical incision was made with a scalpel. The Veress needle was then inserted and a pneumoperitoneum was then created. A 5 mm trocar was then inserted and the laparoscope was introduced. In the upper midabdomen a 5 mm trocar was inserted and in the right upper quadrant two 2.3 mm mini lap graspers were inserted. The gallbladder was retracted cephalad. The cystic duct was dissected free from surrounding tissues. One clip was placed on the duct near the gallbladder junction. An opening was made in the duct and a cholangiocatheter placed within and secured with a clip. Using contrast dye and fluoroscopy an intraoperative cholangiogram was performed that appeared unremarkable. The clip and catheter were then withdrawn. Three clips were placed on the cystic duct and it was divided. The cystic artery was then identified, dissected free, doubly clipped and divided as well. The gallbladder was then mobilized away from the liver with cautery. The umbilical 5 millimeter trocar was exchanged for an 11 millimeter trocar. The gallbladder was then placed in an endoscopic bag and extracted at the umbilical trocar site. The fascia there was closed with an 0 Vicryl suture. All blood and irrigation fluid was suctioned and hemostasis was good. The remaining ports were removed and the pneumoperitoneum was relieved. The skin incisions were injected with half per cent Marcaine with epinephrine, and all were closed using 4-0 Monocryl suture. Steri-Strips and dressings were then applied. The patient tolerated the procedure well and was sent to the recovery room in stable condition. At the end of the case all counts were correct. VICTOR M GAMEZ MD Feb 16, 2020 08:58
[2020-02-16] MEDS ORDERED: oxyCODONE/APAP 5/325 1 TAB TABLET PO PRN ×2 (09:00→09:15)
--- NOTE | 2020-02-16 09:22 | RAD ---
Examination: CHOLANGIOGRAM INTRAOPERATIVE History: Reason: CHOLANGIOGRAMS IN OR WITH C-ARM. FL TIME =.9 MINUTES, 2 IMAGES / Spl. Instructions: / History: Comparison/Correlation: None Findings: Intraoperative cholangiogram was performed. Fluoroscopy was utilized for 0.9 minutes. A total of 2 images provided for interpretation. Cholecystectomy is identified with clips evident. The remnant cystic duct is seen to opacify with contrast. Common duct and intrahepatic biliary tree opacify well with contrast. No strictures identified. No suspicious filling defects are identified. Contrast is noted within the duodenum. Impression: Cholecystectomy. No suspicious filling defects or strictures involving the visualized biliary tree. Electronically signed by: Bob Dawson MD (02/16/2020 9:19 AM) [id number]
[2020-02-16] MEDS ORDERED: PROCHLORPERAZINE 10 MG/2 ML VIAL. ONE (09:25)
[2020-02-16] MEDS: PROCHLORPERAZINE 10 MG/2 ML VIAL. IV PRN ×2 (09:27→09:44)
--- NOTE | 2020-02-16 09:54 | NUR ---
SW following. Discussed with RN, pt from home. COVID negative, NPO, surgery this morning. SW will continue to follow.
[2020-02-16 10:33] VITALS: BP 122/77
--- NOTE | 2020-02-16 12:35 | PDOC ---
PROGRESS NOTES Chief Complaint Chief Complaint late entry, seen on 02/14 SYMPTOMATIC GALLSTONES Cholelithiasis with wall echo shadow which limits evaluation. No definite findings to suggest acute cholecystitis. Large ovoid gallstones completely filling the lumen of the gallbladder versus calcification or gallbladder wall from porcelain gallbladder. RUQ DISCOMFORT, PERSISTENT , FAILED outpt treatment obesity, BMI 35 TOBACCO abuse disorder p History of Present Illness History of Present Illness OR in AM Vitals Vitals Vital Signs Date Time Temp Pulse Resp B/P (MAP) Pulse Ox O2 Delivery O2 Flow Rate FiO2 02/16/20 10:33 98.1 64 18 122/77 (92) 95 Room Air 98.1 02/16/20 09:16 10.0 Physical Exam General: Alert, Oriented X3, Cooperative, No acute distress Heart: Regular rate, Normal S1, Normal S2 Abdomen: Soft, Other (ND, mildly ttp epigastric) Extremities: No clubbing, No cyanosis Skin: No rashes, No breakdown Labs LABS Laboratory Tests Test 02/16/20 06:15 Urine Test Negative (NEG) Assessment and Plan Assessmemt and Plan Problems Medical Problems: (1) Biliary colic Status: Acute Comment Review of Relevant I have reviewed the following items fabio (where applicable) has been applied. Labs Laboratory Tests Test 02/14/20 15:15 02/15/20 05:08 02/16/20 06:15 Coronavirus (COVID-19)(PCR) Negative (NEGATIVE) Sodium Level 139 mmol/L (136-145) Potassium Level 3.8 mmol/L (3.5-5.1) Chloride Level 106 mmol/L (98-107) Carbon Dioxide Level 24 mmol/L (21-32) Anion Gap 9 (6-14) Blood Urea Nitrogen 11 mg/dL (7-20) Creatinine 0.9 mg/dL (0.6-1.0) Estimated GFR (Cockcroft-Gault) 72.1 Glucose Level 92 mg/dL (70-99) Calcium Level 7.9 mg/dL (8.5-10.1) Urine Test Negative (NEG) Laboratory Tests Test 02/16/20 06:15 Urine Test Negative (NEG) Microbiology 02/14/20 Urine Culture - Final, Complete 02/14/20 Antimicrobic Susceptibility - Final, Complete Medications Current Medications Fentanyl Citrate (Fentanyl 2ml Vial) 50 mcg 1X ONCE IVP Last administered on 02/14/20at 09:46; Start 02/14/20 at 09:15; Stop 02/14/20 at 09:29; Status DC Ondansetron HCl (Zofran) 4 mg 1X ONCE IVP Last administered on 02/14/20at 09:46; Start 02/14/20 at 09:15; Stop 02/14/20 at 09:29; Status DC Ondansetron HCl (Zofran) 4 mg PRN Q8HRS PRN IV NAUSEA/VOMITING Last administered on 02/15/20at 08:14; Start 02/14/20 at 13:00; Stop 02/15/20 at 12:59; Status DC Fentanyl Citrate (Fentanyl 2ml Vial) 50 mcg PRN Q1HR PRN IV PAIN Last administered on 02/14/20at 22:13; Start 02/14/20 at 13:00; Stop 02/15/20 at 12:59; Status DC Sodium Chloride (Normal Saline Flush) 3 ml QSHIFT PRN IV AFTER MEDS AND BLOOD DRAWS; Start 02/14/20 at 13:45 Sodium Chloride 1,000 ml @ 100 mls/hr Q10H IV Last administered on 02/16/20at 00:25; Start 02/14/20 at 13:45 Ondansetron HCl (Zofran) 4 mg PRN Q4HRS PRN IV NAUSEA/VOMITING Last administered on 02/15/20at 22:24; Start 02/14/20 at 13:45 Zolpidem Tartrate (Ambien) 5 mg PRN QHS PRN PO INSOMNIA; Start 02/14/20 at 13:45 Acetaminophen (Tylenol) 650 mg PRN Q4HRS PRN PO TEMP OVER 100.4F OR MILD PAIN; Start 02/14/20 at 13:45 Al Hydroxide/Mg Hydroxide (Mylanta Plus Xs) 30 ml PRN DAILY PRN PO HEARTBURN / GAS; Start 02/14/20 at 13:45 Clonidine HCl (Catapres) 0.1 mg PRN Q6HRS PRN PO SBP>160 OR DBP>90; Start 02/14/20 at 13:45 Sodium Monofluorophosphate (Fleet Adult) 133 ml PRN DAILY PRN SC CONSTIPATION; Start 02/14/20 at 13:45 Docusate Sodium (Colace) 100 mg PRN BID PRN PO HARD STOOLS; Start 02/14/20 at 13:45 Albuterol/ Ipratropium (Duoneb) 3 ml Q4H NEB Last administered on 02/14/20at 20:08; Start 02/14/20 at 13:45; Stop 02/14/20 at 22:08; Status DC Guaifenesin (Robitussin) 200 mg PRN Q4HRS PRN PO COUGH; Start 02/14/20 at 13:45 Lorazepam (Ativan) 0.5 mg PRN Q4HRS PRN PO ANXIETY / AGITATION; Start 02/14/20 at 13:45 Enoxaparin Sodium (Lovenox 40mg Syringe) 40 mg Q24H SQ ; Start 02/14/20 at 15:00 Multivit/ Folic Acid/Iron (Multivitamin ) 1 tab DAILY PO ; Start 02/15/20 at 09:00 Famotidine (Pepcid) 20 mg PRN BID PRN PO HEARTBURN / GAS; Start 02/14/20 at 21:00 Pantoprazole Sodium (PROTONIX VIAL for IV PUSH) 40 mg DAILYAC IVP Last administered on 02/15/20at 07:58; Start 02/14/20 at 16:30 Potassium Chloride (Klor-Con) 40 meq 1X ONCE PO ; Start 02/14/20 at 14:00; Stop 02/14/20 at 14:19; Status DC Potassium Chloride (Klor-Con) 20 meq DAILYWBKFT PO Last administered on 02/15/20at 14:50; Start 02/15/20 at 08:00 Albuterol Sulfate (Ventolin Neb Soln) 2.5 mg PRN Q4HRS PRN NEB SHORTNESS OF BREATH; Start 02/14/20 at 22:15 Piperacillin Sod/ Tazobactam Sod 3.375 gm/Sodium Chloride 50 ml @ 100 mls/hr Q6HRS IV Last administered on 02/16/20at 11:43; Start 02/15/20 at 18:00 Fentanyl Citrate (Fentanyl 2ml Vial) 50 mcg PRN Q1HR PRN IVP PAIN Last administered on 02/15/20at 14:50; Start 02/15/20 at 14:15 Ondansetron HCl (Zofran) 4 mg PRN Q6HRS PRN IV NAUSEA/VOMITING; Start 02/16/20 at 07:00; Stop 02/17/20 at 06:59 Fentanyl Citrate (Fentanyl 2ml Vial) 25 mcg PRN Q5MIN PRN IV MILD PAIN 1-3 Last administered on 02/16/20at 09:16; Start 02/16/20 at 07:00; Stop 02/17/20 at 06:59 Fentanyl Citrate (Fentanyl 2ml Vial) 50 mcg PRN Q5MIN PRN IV MODERATE TO SEVERE PAIN; Start 02/16/20 at 07:00; Stop 02/17/20 at 06:59 Ringer's Solution 1,000 ml @ 30 mls/hr Q24H IV ; Start 02/16/20 at 07:00; Stop 02/16/20 at 18:59 Lidocaine HCl (Xylocaine-Mpf 1% 2ml Vial) 2 ml PRN 1X PRN ID PRIOR TO IV START; Start 02/16/20 at 07:00; Stop 02/17/20 at 06:59 Hydromorphone HCl (Dilaudid) 0.5 mg PRN Q10MIN PRN IV SEV PAIN, Second choice; Start 02/16/20 at 07:00; Stop 02/17/20 at 06:59 Prochlorperazine Edisylate (Compazine) 5 mg PACU PRN PRN IV NAUSEA, MRX1 Last administered on 02/16/20at 09:44; Start 02/16/20 at 07:00; Stop 02/17/20 at 06:59 Iohexol (Omnipaque 300 Mg/ml) 50 ml STK-MED ONCE .ROUTE Last administered on 02/16/20at 07:10; Start 02/16/20 at 07:03; Stop 02/16/20 at 07:03; Status DC Cellulose (Surgicel Hemostat 4x8) 1 each STK-MED ONCE .ROUTE ; Start 02/16/20 at 07:03; Stop 02/16/20 at 07:03; Status DC Bupivacaine HCl (Sensorcaine Mpf 0.5%) 30 ml STK-MED ONCE .ROUTE Last administered on 02/16/20at 07:11; Start 02/16/20 at 07:03; Stop 02/16/20 at 07:03; Status DC Fentanyl Citrate (Fentanyl 2ml Vial) 100 mcg STK-MED ONCE .ROUTE ; Start 02/16/20 at 07:11; Stop 02/16/20 at 07:11; Status DC Midazolam HCl (Versed) 2 mg STK-MED ONCE .ROUTE ; Start 02/16/20 at 07:11; Stop 02/16/20 at 07:12; Status DC Scopolamine (Transderm-Scop) 1 patch ONCE TD ; Start 02/16/20 at 07:30; Status UNV Scopolamine (Transderm-Scop) 1 patch 1X ONCE TD Last administered on 02/16/20at 07:23; Start 02/16/20 at 07:30; Stop 02/16/20 at 07:31; Status DC Scopolamine (Transderm-Scop) 1 patch STK-MED ONCE TD ; Start 02/16/20 at 07:21; Stop 02/16/20 at 07:22; Status DC Rocuronium Enloe (Zemuron) 50 mg STK-MED ONCE .ROUTE ; Start 02/16/20 at 08:09; Stop 02/16/20 at 08:10; Status DC Propofol (Diprivan) 200 mg STK-MED ONCE IV ; Start 02/16/20 at 08:28; Stop 02/16/20 at 08:29; Status DC Lidocaine HCl (Lidocaine Pf 2% Vial) 5 ml STK-MED ONCE .ROUTE ; Start 02/16/20 at 08:28; Stop 02/16/20 at 08:29; Status DC Ondansetron HCl (Zofran) 4 mg STK-MED ONCE .ROUTE ; Start 02/16/20 at 08:28; Stop 02/16/20 at 08:29; Status DC Dexamethasone Sodium Phosphate (Decadron) 4 mg STK-MED ONCE .ROUTE ; Start 02/16/20 at 08:28; Stop 02/16/20 at 08:29; Status DC Neostigmine Enloe (Neostigmine Methylsulfate) 5 mg STK-MED ONCE .ROUTE ; Start 02/16/20 at 08:45; Stop 02/16/20 at 08:45; Status DC Glycopyrrolate (Robinul) 1 mg STK-MED ONCE .ROUTE ; Start 02/16/20 at 08:45; Stop 02/16/20 at 08:45; Status DC Oxycodone/ Acetaminophen (Percocet 5/325) 1 tab PRN Q4HRS PRN PO MODERATE PAIN; Start 02/16/20 at 09:00 Oxycodone/ Acetaminophen (Percocet 5/325) 2 tab PRN Q4HRS PRN PO SEVERE PAIN; Start 02/16/20 at 09:15 Fentanyl Citrate (Fentanyl 2ml Vial) 100 mcg STK-MED ONCE .ROUTE ; Start 02/16/20 at 09:13; Stop 02/16/20 at 09:14; Status DC Prochlorperazine Edisylate (Compazine) 10 mg STK-MED ONCE .ROUTE ; Start 02/16/20 at 09:25; Stop 02/16/20 at 09:26; Status DC Rocuronium Enloe (Zemuron) 50 mg STK-MED ONCE .ROUTE ; Start 02/16/20 at 10:54; Stop 02/16/20 at 10:54; Status DC Active Scripts Active Tramadol Hcl 50 Mg Tablet 50 Mg PO Q6HRS PRN Percocet 5-325 Mg Tablet (Oxycodone/Acetaminophen) 1 Each Tablet 1 Tab PO PRN Q6HRS PRN Ibuprofen 800 Mg Tablet 800 Mg PO PRN Q6HRS PRN Colace (Docusate Sodium) 100 Mg Capsule 100 Mg PO BID Reported Zantac (Ranitidine Hcl) 150 Mg Tablet 1 Tab PO BID PRN Tablet (Pnv Cmb#95/Ferrous Fumarate/Fa) 1 Each Tablet 1 Tab PO DAILY Vitals/I & O Vital Sign - Last 24 Hours 02/15/20 02/15/20 02/15/20 02/15/20 14:50 15:00 15:20 19:00 Temp 98.3 98.2 98.3 98.2 Pulse 76 77 Resp 20 18 18 18 B/P (MAP) 119/71 (87) 146/85 (105) Pulse Ox 99 99 99 95 O2 Delivery Room Air Room Air Room Air Room Air 02/15/20 02/15/20 02/16/20 02/16/20 19:30 23:00 03:00 06:59 Temp 98.6 98.2 97.3 98.6 98.2 97.3 Pulse 103 95 83 Resp 18 18 20 B/P (MAP) 131/78 (95) 138/53 (81) 130/75 Pulse Ox 98 97 97 O2 Delivery Room Air Room Air Room Air Room Air 02/16/20 02/16/20 02/16/20 02/16/20 08:59 09:15 09:16 09:30 Temp 97.3 98.1 98.1 97.3 98.1 98.1 Pulse 75 84 75 Resp 16 15 16 15 B/P (MAP) 139/82 126/78 118/78 Pulse Ox 100 96 100 95 O2 Delivery Room Air Room Air Simple Mask Room Air O2 Flow Rate 10 10.0 02/16/20 02/16/20 09:45 10:33 Temp 97.7 98.1 97.7 98.1 Pulse 64 64 Resp 15 18 B/P (MAP) 125/84 122/77 (92) Pulse Ox 95 95 O2 Delivery Room Air Room Air Intake and Output 02/15/20 02/15/20 02/16/20 15:00 23:00 07:00 Intake Total 50 ml 850 ml Balance 50 ml 850 ml KRYSTAL BARAJAS MD Feb 16, 2020 12:35
[2020-02-16] MEDS ORDERED: IBUP-1060 PO (12:45)
[2020-02-16] MEDS ORDERED: TRAM50TA PO (12:45)
--- NOTE | 2020-02-16 12:49 | PDOC3 ---
Discharge Summary Visit Information Date of Admission: Feb 14, 2020 Date of Discharge: Feb 16, 2020 Final Diagnosis SYMPTOMATIC GALLSTONES Cholelithiasis with wall echo shadow which limits evaluation. No definite findings to suggest acute cholecystitis. Large ovoid gallstones completely filling the lumen of the gallbladder versus calcification or gallbladder wall from porcelain gallbladder. RUQ DISCOMFORT, PERSISTENT , FAILED outpt treatment obesity, BMI 35 TOBACCO abuse disorder Problems Medical Problems: (1) Biliary colic Status: Acute Brief Hospital Course Allergies Allergies Coded Allergies Type Severity Reaction Last Updated Verified morphine Adverse Reaction Intermediate Vomiting 08/12/17 Yes Vital Signs Vital Signs Date Time Temp Pulse Resp B/P (MAP) Pulse Ox O2 Delivery O2 Flow Rate FiO2 02/16/20 10:33 98.1 64 18 122/77 (92) 95 Room Air 98.1 02/16/20 09:16 10.0 Lab Results Laboratory Tests Test 02/14/20 15:15 02/15/20 05:08 02/16/20 06:15 Coronavirus (COVID-19)(PCR) Negative (NEGATIVE) Sodium Level 139 mmol/L (136-145) Potassium Level 3.8 mmol/L (3.5-5.1) Chloride Level 106 mmol/L (98-107) Carbon Dioxide Level 24 mmol/L (21-32) Anion Gap 9 (6-14) Blood Urea Nitrogen 11 mg/dL (7-20) Creatinine 0.9 mg/dL (0.6-1.0) Estimated GFR (Cockcroft-Gault) 72.1 Glucose Level 92 mg/dL (70-99) Calcium Level 7.9 mg/dL (8.5-10.1) Urine Test Negative (NEG) Laboratory Tests Test 02/16/20 06:15 Urine Test Negative (NEG) Brief Hospital Course Ms. French is a 34 old admit for adb pain taken to OR, lap edenilson 02/15, Dr Wilson, pain better , f/u Discharge Information Condition at Discharge: Improved Follow Up: Weeks Disposition/Orders: D/C to Home Scheduled Pnv Cmb#95/Ferrous Fumarate/Fa ( Tablet) 1 Each Tablet, 1 TAB PO DAILY, #90 Ref 3 (Reported) Entered as Reported by: SHENG FAROOQ on 08/12/17 6169 Last Action: Converted on 02/14/20 8154 by ALVAREZ OROZCO MD Scheduled PRN Ibuprofen (Ibuprofen) 800 Mg Tablet, 800 MG PO PRN TID PRN for INFLAMMATION, #30 Ref 1 Prescribed by: KRYSTAL BARAJAS on 02/16/20 1245 Ranitidine Hcl (Zantac) 150 Mg Tablet, 1 TAB PO BID PRN for HEARTBURN / GAS, #60 Ref 3 (Reported) Entered as Reported by: SHENG FAROOQ on 08/12/17 0750 Last Action: Converted on 02/14/201353 by ALVAREZ OROZCO MD Tramadol Hcl (Tramadol Hcl) 50 Mg Tablet, 50 MG PO Q6HRS PRN for PAIN, #12 Prescribed by: KRYSTAL BARAJAS on 02/16/20 1245 Discontinued Medications Docusate Sodium (Colace) 100 Mg Capsule, 100 MG PO BID, #60 Ref 1 Prescribed by: SAUL LA on 08/14/17835 Last Action: HELD on 02/14/201353 by ALVAREZ OROZCO MD Oxycodone/Apap 5-325 (Percocet 5-325 Mg Tablet ) 1 Each Tablet, 1 TAB PO PRN Q6HRS PRN for PAIN, #30 Ref 0 Prescribed by: SAUL LA on 08/14/17835 Last Action: HELD on 02/14/201353 by ALVAREZ OROZCO MD Patient Instructions Patient Instructions face to face discussion < 30min Justicifation of Admission Dx: Justifications for Admission: Justification of Admission Dx: Yes KRYSTAL BARAJAS MD Feb 16, 2020 12:49
[2020-02-16] MEDS ORDERED: PHENOL ORAL SPRAY 177ML BOTTLE. PO PRN (13:00)
--- NOTE | 2020-02-16 13:25 | NUR ---
Discharge instructions and belongings reviewed with patient, verbalized understanding. Patient will be escorted out via wheelchair accompanied by her .
--- NOTE | 2020-02-17 16:06 | PATHOLOGY ---
[facility] Accession Number: [id number] . 01 Material submitted: . gallbladder - GALLBLADDER AND CONTENTS . 01 Clinical history: . Biliary colic . 02 Diagnosis: Gallbladder, cholecystectomy: - Cholelithiasis. - Chronic cholecystitis. . ([facility] 02/17/2020 1336 Local . 02 Comment: There is no evidence of malignancy. . ([facility]:mm; 02/17/2020) . 02 Electronically signed: . Nahum Chao MD, Pathologist NPI- [id number] . 01 Gross description: . The specimen is received in formalin, labeled "Ruthann French, gallbladder and contents". Received is an intact gallbladder measuring 7.4 x 2.2 x 2.0 cm in greatest dimensions displaying a pink-espinosa serosal surface. Opening the specimen reveals a velvety, pink-wong mucosa with a gallbladder wall thickness of 0.1 cm. Calculi are present displaying a yellow-green and nodular appearance, and no masses or lesions are noted grossly. Merchandising Lead sections, to include the proximal margin, are submitted in cassette A1. ([facility]AA; 02/16/2020) QAC/QAC 02/16/2020 1603 Local . 02 Pathologist provided ICD-10: K80.10 . 02 CPT . 430747 Specimen Comment: A courtesy copy of this report has been sent to [phone], [phone] Specimen Comment: [id number], Specimen Comment: Report sent to ,DR OROZCO / DR BERNAL Performed at: [address], [place], [place] [id number] MD Rodney Hector MD Phone: [phone] Performed at: [address] [id number] MD Nahum Chao MD Phone: [phone]
== END 2020-02-16 13:38 | disposition home or self-care (01) | DRG 419 ==
LOC: ER 08:58 → 4 NORTH 12:37
PROVIDERS: ADMIT Family Medicine; ATTEND Family Medicine
PROC: BF101ZZ Fluoroscopy of Bile Ducts using Low Osmolar Contrast (ICD-10-PCS; 2020-02-16)
PROC: 0FT44ZZ Resection of Gallbladder, Percutaneous Endoscopic Approach (ICD-10-PCS; principal; 2020-02-16 07:30)
DX: K80.10 Calculus of gallbladder with chronic cholecystitis without obstruction (principal); E66.01 Morbid (severe) obesity due to excess calories; K21.9 Gastro-esophageal reflux disease without esophagitis; F17.210 Nicotine dependence, cigarettes, uncomplicated; F41.9 Anxiety disorder, unspecified; Z83.3 Family history of diabetes mellitus; Z68.35 Body mass index [BMI] 35.0-35.9, adult; Z87.442 Personal history of urinary calculi; Z79.899 Other long term (current) drug therapy; Z88.8 Allergy status to other drugs, medicaments and biological substances; Z20.828 Contact with and (suspected) exposure to other viral communicable diseases
CPT/HCPCS: 36415; 74300; 80048; 80053; 81001; 81025; 83690; 85025; 85610; 85730; 87086; 88304; 94640; 96374; 96375; 99285; C9113; J0780; J1100; J2250; J2405; J2543; J2704; J2710; J3010; J3490; J7030; J7120; Q9967; U0003; G0378

== ENCOUNTER → 2021-10-04 | Outpatient (CLI) | payer MEDICAID ==
--- NOTE | 2021-10-05 08:23 | RAD ---
EXAM: Pelvic sonogram. HISTORY: Ovarian cyst. TECHNIQUE: Transabdominal and transvaginal sonographic imaging of the pelvis performed. COMPARISON: None. FINDINGS: The uterus measures 8.0 x 6.2 x 4.5 cm. The endometrial stripe measures 7 mm. The ovaries a re normal in size and demonstrate normal blood flow. There is no adnexal cyst or mass. There is no pe lvic free fluid. There is an intrauterine contraceptive device in expected position within the endome trial cavity. IMPRESSION: 1. IUD in expected position. 2. Otherwise, unremarkable pelvic sonogram. Electronically signed by: Caro Flores MD (10/05/2021 8:21 AM) [id number]
== END ==
LOC: US 15:40
PROVIDERS: ATTEND Obstetrics & Gynecology
DX: N83.202 Unspecified ovarian cyst, left side (principal)
CPT/HCPCS: 76830; 76856